=== PATIENT | male | born 1930 | race Caucasian/White ===

== ENCOUNTER 2016-09-08 11:41 | Inpatient (IN) | payer MEDICARE, OTHER ==
[~2016-09-08] VITALS: Ht 182.8 cm; Wt 72.6 kg
[2016-09-08] VITALS (7 sets, daily range): BP systolic 99–154; BP diastolic 65–91
[~2016-09-08 11:41] MED LIST: ALBUTEROL0.09 MG/A2 INH; AMLODIPINE BESY10 MG PO; AMOXICILLIN500 M2 PO; ASPIRIN CHILDRE81 MG PO; ASPIRIN81 M1 PO; AZITHROMYCIN250 MG PO; COLESTID1 GM PO; DAYPRO600 M1 PO; DELTASONE50 MG PO; FISH OIL1000 MG PO; GLIPIZIDE10 MG PO; GLUCOSAMINE & C1 TA2 PO; GLUCOTROL XL5 MG PO; HYDROCODONE BIT1 T11 PO; HYDROXYZINE PAM25 M1 PO; IRON FERROUS S325 MG PO; LANTUS100 U/ML SC; LEVAQUIN750 MG PO; LOPRESSOR50 MG PO; METOPROLOL SUCC50 MG PO; MIRTAZAPINE15 M2 PO; NITROSTAT0.4 MG PO; NOVOLOG FLEX100 U/ML SC; NOVOLOG FLEX100 U/ML SQ; PLAVIX75 MG PO; PRAVACHOL40 MG PO; ROBAXIN750 MG PO; SYNTHROID0.1 MG PO; VITAMIN B1250 MCG PO; VITAMIN D5000 I3 PO
[2016-09-08 12:26] LABS: BASO # 0.1 10*3/uL (0.0-0.1); BASO % 0.9 % (0.0-1.0); EOS # 0.1 10*3/uL (0.0-0.4); EOS % 1.4 % (1.0-4.0); HEMATOCRIT 34.8 % (42.0-52.0); HEMOGLOBIN 12.5 g/dl (14.0-18.0); LYMPH # 1.1 10*3/uL (1.3-4.4); LYMPH % 16.4 % (27.0-41.0); MEAN CELL VOLUME 86.8 fl (80.0-94.0); MEAN CORPUSCULAR HGB 31.2 pg (27.0-31.0); MEAN CORPUSCULAR HGB CONC 35.9 g/dl (33.0-37.0); MEAN PLATELET VOLUME 12.1 fl (9.6-12.3); MONO # 0.4 10*3/uL (0.1-1.0); MONO % 6.5 % (3.0-9.0); NEUT # 4.9 10*3/uL (2.3-7.9); NEUT % 74.5 % (47.0-73.0); PLATELET COUNT AUTOMATED 183 10*3/uL (130-400); RED BLOOD COUNT 4.01 10*6/uL (4.50-5.90); RED CELL DISTRI WIDTH 12.7 % (0-14.5); WHITE BLOOD COUNT 6.6 10*3/uL (4.8-10.8)
[2016-09-08 12:40] LABS: POTASSIUM 5.2 mmol/L (3.5-5.1)
[2016-09-08] MEDS ORDERED: ASMANEX220 MCG INH (12:43)
[2016-09-08] MEDS ORDERED: GLIPIZIDE5 MG PO (12:44)
[2016-09-08] MEDS ORDERED: NOVAPLUS V0.09 MG/Ac INH (12:44)
[2016-09-08 15:16] LABS: POTASSIUM 4.4 mmol/L (3.5-5.1)
[2016-09-08 18:53] LABS: BUN 22 mg/dl (7-24); CARBON DIOXIDE 19 mmol/L (21-32); CHLORIDE 108 mmol/L (98-107); EST GLOM FILT AFRICAN AMERICAN > 60 ml/min; GLUCOSE 180 mg/dL (65-99); POTASSIUM 4.3 mmol/L (3.5-5.1); SODIUM 139 mmol/L (136-145)
[2016-09-08 22:36] LABS: BUN 21 mg/dl (7-24); CARBON DIOXIDE 20 mmol/L (21-32); CHLORIDE 105 mmol/L (98-107); EST GLOM FILT AFRICAN AMERICAN > 60 ml/min; GLUCOSE 224 mg/dL (65-99); POTASSIUM 4.2 mmol/L (3.5-5.1); SODIUM 137 mmol/L (136-145)
[2016-09-09] VITALS: BP 103/65
[2016-09-09 02:06] LABS: BUN 20 mg/dl (7-24); CARBON DIOXIDE 22 mmol/L (21-32); CHLORIDE 106 mmol/L (98-107); EST GLOM FILT AFRICAN AMERICAN > 60 ml/min; GLUCOSE 173 mg/dL (65-99); POTASSIUM 3.7 mmol/L (3.5-5.1); SODIUM 141 mmol/L (136-145)
[2016-09-09 04:00] VITALS: BP 109/67
[2016-09-09 06:00] LABS: BASO # 0.1 10*3/uL (0.0-0.1); BASO % 0.7 % (0.0-1.0); EOS # 0.5 10*3/uL (0.0-0.4); EOS % 6.1 % (1.0-4.0); HEMATOCRIT 35.8 % (42.0-52.0); HEMOGLOBIN 12.6 g/dl (14.0-18.0); LYMPH # 1.8 10*3/uL (1.3-4.4); LYMPH % 23.4 % (27.0-41.0); MEAN CELL VOLUME 88.8 fl (80.0-94.0); MEAN CORPUSCULAR HGB 31.3 pg (27.0-31.0); MEAN CORPUSCULAR HGB CONC 35.2 g/dl (33.0-37.0); MEAN PLATELET VOLUME 12.3 fl (9.6-12.3); MONO # 0.4 10*3/uL (0.1-1.0); MONO % 5.7 % (3.0-9.0); NEUT # 4.8 10*3/uL (2.3-7.9); NEUT % 63.8 % (47.0-73.0); PLATELET COUNT AUTOMATED 200 10*3/uL (130-400); RED BLOOD COUNT 4.03 10*6/uL (4.50-5.90); RED CELL DISTRI WIDTH 12.9 % (0-14.5); WHITE BLOOD COUNT 7.5 10*3/uL (4.8-10.8)
[2016-09-09 06:05] LABS: FREE T4 1.06 ng/dl (0.76-1.46); MAGNESIUM 1.8 mg/dL (1.5-2.1); PHOSPHOROUS 2.1 mg/dL (2.5-4.9)
[2016-09-09 06:13] LABS: THYROID STIM HORMONE (HS) 4.77 uIU/ml (0.358-4.75)
[2016-09-09 07:58] LABS: BUN 19 mg/dl (7-24); CARBON DIOXIDE 23 mmol/L (21-32); CHLORIDE 104 mmol/L (98-107); EST GLOM FILT AFRICAN AMERICAN > 60 ml/min; GLUCOSE 127 mg/dL (65-99); POTASSIUM 3.7 mmol/L (3.5-5.1); SODIUM 137 mmol/L (136-145)
[2016-09-09 08:00] VITALS: BP 110/70
[2016-09-09 08:16] LABS: FOLIC ACID 13.96 ng/mL (>5.38)
[2016-09-09 12:00] VITALS: BP 105/75
== END 2016-09-09 14:43 | disposition home or self-care (01) | DRG 637 ==
LOC: ED 11:41 → EDHOLD 12:52 → ICCU 12:52 → 4E 13:12 → ICCU 13:51
PROVIDERS: Emergency Medicine; Internal Medicine
DX: E13.10 Other specified diabetes mellitus with ketoacidosis without coma (principal); N17.0 Acute kidney failure with tubular necrosis; I13.0 Hypertensive heart and chronic kidney disease with heart failure and stage 1 through stage 4 chronic kidney disease, or unspecified chronic kidney disease; I50.32 Chronic diastolic (congestive) heart failure; F33.3 Major depressive disorder, recurrent, severe with psychotic symptoms; E03.9 Hypothyroidism, unspecified; E78.5 Hyperlipidemia, unspecified; N18.3 Chronic kidney disease, stage 3 (moderate); E55.9 Vitamin D deficiency, unspecified; G47.00 Insomnia, unspecified; E13.22 Other specified diabetes mellitus with diabetic chronic kidney disease; E87.5 Hyperkalemia; D64.9 Anemia, unspecified; E87.8 Other disorders of electrolyte and fluid balance, not elsewhere classified; Z88.8 Allergy status to other drugs, medicaments and biological substances; Z91.041 Radiographic dye allergy status; Z95.5 Presence of coronary angioplasty implant and graft; Z83.3 Family history of diabetes mellitus; Z82.49 Family history of ischemic heart disease and other diseases of the circulatory system; I25.2 Old myocardial infarction; Z86.73 Personal history of transient ischemic attack (TIA), and cerebral infarction without residual deficits; Z82.3 Family history of stroke; Z79.82 Long term (current) use of aspirin; Z79.899 Other long term (current) drug therapy; Z79.4 Long term (current) use of insulin

== ENCOUNTER → 2016-09-21 | Outpatient (CLI) | payer MEDICARE, OTHER ==
[~2016-09-21] MED LIST changes: +ASMANEX220 MCG INH; +GLIPIZIDE5 MG PO; +NOVAPLUS V0.09 MG/Ac INH
[2016-09-21 10:52] LABS: BASO # 0.1 10*3/uL (0.0-0.1); BASO % 1.1 % (0.0-1.0); EOS # 0.3 10*3/uL (0.0-0.4); EOS % 4.8 % (1.0-4.0); HEMATOCRIT 36.6 % (42.0-52.0); HEMOGLOBIN 12.6 g/dl (14.0-18.0); LYMPH # 1.3 10*3/uL (1.3-4.4); LYMPH % 19.2 % (27.0-41.0); MEAN CELL VOLUME 92.4 fl (80.0-94.0); MEAN CORPUSCULAR HGB 31.8 pg (27.0-31.0); MEAN CORPUSCULAR HGB CONC 34.4 g/dl (33.0-37.0); MEAN PLATELET VOLUME 12.2 fl (9.6-12.3); MONO # 0.5 10*3/uL (0.1-1.0); MONO % 7.7 % (3.0-9.0); NEUT # 4.4 10*3/uL (2.3-7.9); PLATELET COUNT AUTOMATED 199 10*3/uL (130-400); RED BLOOD COUNT 3.96 10*6/uL (4.50-5.90); RED CELL DISTRI WIDTH 13.4 % (0-14.5); WHITE BLOOD COUNT 6.6 10*3/uL (4.8-10.8)
[2016-09-21 11:20] LABS: ALBUMIN 3.5 gm/dl (3.1-4.5); BILIRUBIN, TOTAL 0.7 mg/dl (0.2-1.0); POTASSIUM 5.1 mmol/L (3.5-5.1); TOTAL PROTEIN 6.3 gm/dL (6.4-8.2)
== END | disposition home or self-care (01) ==
LOC: LAB 10:29
PROVIDERS: Internal Medicine
DX: I50.33 Acute on chronic diastolic (congestive) heart failure (principal)

== ENCOUNTER → 2016-09-29 | Outpatient (CLI) | payer MEDICARE, OTHER | END | disposition home or self-care (01) | LOC: CARD 09:16 | DX: I50.33 Acute on chronic diastolic (congestive) heart failure (principal) ==

== ENCOUNTER 2016-10-04 11:38 | Inpatient (IN) | payer MEDICARE, OTHER ==
[~2016-10-04] VITALS: Ht 182.9 cm; Wt 73.7 kg
[2016-10-04 11:38] VITALS: BP 110/69
[2016-10-04 12:02] LABS: BASO # 0.1 10*3/uL (0.0-0.1); EOS # 0.4 10*3/uL (0.0-0.4); EOS % 4.8 % (1.0-4.0); HEMATOCRIT 36.6 % (42.0-52.0); HEMOGLOBIN 12.7 g/dl (14.0-18.0); LYMPH # 1.5 10*3/uL (1.3-4.4); MEAN CELL VOLUME 90.6 fl (80.0-94.0); MEAN CORPUSCULAR HGB 31.4 pg (27.0-31.0); MEAN CORPUSCULAR HGB CONC 34.7 g/dl (33.0-37.0); MEAN PLATELET VOLUME 11.3 fl (9.6-12.3); MONO # 0.7 10*3/uL (0.1-1.0); MONO % 8.1 % (3.0-9.0); NEUT # 5.5 10*3/uL (2.3-7.9); NEUT % 67.7 % (47.0-73.0); PLATELET COUNT AUTOMATED 211 10*3/uL (130-400); RED BLOOD COUNT 4.04 10*6/uL (4.50-5.90); RED CELL DISTRI WIDTH 13.2 % (0-14.5); WHITE BLOOD COUNT 8.1 10*3/uL (4.8-10.8)
[2016-10-04 12:11] LABS: PROTHROMBIN TIME 10.3 SECONDS (9.0-12.4)
[2016-10-04 12:20] LABS: ALBUMIN 3.4 gm/dl (3.1-4.5); ALKALINE PHOSPHATASE 63 U/L (45-117); BILIRUBIN, TOTAL 0.5 mg/dl (0.2-1.0); BUN 15 mg/dl (7-24); CARBON DIOXIDE 21 mmol/L (21-32); CHLORIDE 107 mmol/L (98-107); EST GLOM FILT AFRICAN AMERICAN 59 ml/min; GLUCOSE 259 mg/dL (65-99); MAGNESIUM 1.9 mg/dL (1.5-2.1); POTASSIUM 4.7 mmol/L (3.5-5.1); SGOT/AST 11 IU/L (3-35); SGPT/ALT 16 U/L (12-78); SODIUM 134 mmol/L (136-145); TOTAL PROTEIN 6.5 gm/dL (6.4-8.2)
[2016-10-04 12:23] LABS: TROPONIN I < 0.015 ng/ml (<0.045)
[2016-10-04 12:27] VITALS: BP 112/72
[2016-10-04 13:22] VITALS: BP 119/71
[2016-10-04 14:00] VITALS: BP 126/81
[2016-10-04 16:00] VITALS: BP 104/66
[2016-10-04 20:00] VITALS: BP 98/58
[2016-10-05] VITALS: BP 114/66
[2016-10-05 07:20] LABS: BASO # 0.1 10*3/uL (0.0-0.1); BASO % 1.2 % (0.0-1.0); EOS # 0.4 10*3/uL (0.0-0.4); EOS % 5.3 % (1.0-4.0); HEMATOCRIT 35.9 % (42.0-52.0); HEMOGLOBIN 12.5 g/dl (14.0-18.0); LYMPH # 1.5 10*3/uL (1.3-4.4); LYMPH % 21.8 % (27.0-41.0); MEAN CELL VOLUME 91.6 fl (80.0-94.0); MEAN CORPUSCULAR HGB 31.9 pg (27.0-31.0); MEAN CORPUSCULAR HGB CONC 34.8 g/dl (33.0-37.0); MEAN PLATELET VOLUME 11.9 fl (9.6-12.3); MONO # 0.6 10*3/uL (0.1-1.0); MONO % 8.1 % (3.0-9.0); NEUT # 4.4 10*3/uL (2.3-7.9); NEUT % 63.5 % (47.0-73.0); PLATELET COUNT AUTOMATED 217 10*3/uL (130-400); RED BLOOD COUNT 3.92 10*6/uL (4.50-5.90); RED CELL DISTRI WIDTH 13.4 % (0-14.5); WHITE BLOOD COUNT 6.9 10*3/uL (4.8-10.8)
[2016-10-05 07:53] LABS: HEMOGLOBIN A1c 12.2 % (4.8-5.6)
[2016-10-05 07:57] LABS: ALBUMIN 3.3 gm/dl (3.1-4.5); BILIRUBIN, TOTAL 0.5 mg/dl (0.2-1.0); BUN 17 mg/dl (7-24); CARBON DIOXIDE 23 mmol/L (21-32); CHLORIDE 109 mmol/L (98-107); CHOLESTEROL 97 mg/dL (<200); EST GLOM FILT AFRICAN AMERICAN > 60 ml/min; GLUCOSE 98 mg/dL (65-99); POTASSIUM 3.9 mmol/L (3.5-5.1); SGOT/AST 14 IU/L (3-35); SGPT/ALT 15 U/L (12-78); SODIUM 141 mmol/L (136-145); TOTAL PROTEIN 6.2 gm/dL (6.4-8.2); TRIGLYCERIDES 88 mg/dl (<150); VLDL CHOLESTEROL 18 mg/dL (6-40)
[2016-10-05 07:58] LABS: ALKALINE PHOSPHATASE 61 U/L (45-117); HDL CHOLESTEROL 38 mg/dl (40-60); LDL CHOLESTEROL 41 mg/dL (9-159)
[2016-10-05 08:00] VITALS: BP 128/75
[2016-10-05 08:56] LABS: FOLIC ACID 16.54 ng/mL (>5.38); VITAMIN D, 25-HYDROXY 34.2 ng/mL (30-100)
== END 2016-10-05 11:45 | disposition home or self-care (01) | DRG 313 ==
LOC: ED 11:38 → 5E 13:09 → EDHOLD 13:09 → 5E 13:32
PROVIDERS: Hospitalist; Student in an Organized Health Care Education/Training Program
DX: R07.89 Other chest pain (principal); I25.2 Old myocardial infarction; N17.0 Acute kidney failure with tubular necrosis; I13.0 Hypertensive heart and chronic kidney disease with heart failure and stage 1 through stage 4 chronic kidney disease, or unspecified chronic kidney disease; I50.32 Chronic diastolic (congestive) heart failure; I25.10 Atherosclerotic heart disease of native coronary artery without angina pectoris; E11.22 Type 2 diabetes mellitus with diabetic chronic kidney disease; N18.3 Chronic kidney disease, stage 3 (moderate); E78.5 Hyperlipidemia, unspecified; E03.9 Hypothyroidism, unspecified; E55.9 Vitamin D deficiency, unspecified; G47.00 Insomnia, unspecified; Z95.1 Presence of aortocoronary bypass graft; Z88.5 Allergy status to narcotic agent; Z88.8 Allergy status to other drugs, medicaments and biological substances; Z91.041 Radiographic dye allergy status; Z86.73 Personal history of transient ischemic attack (TIA), and cerebral infarction without residual deficits; F32.9 Major depressive disorder, single episode, unspecified; Z95.5 Presence of coronary angioplasty implant and graft; D64.9 Anemia, unspecified

== ENCOUNTER → 2016-11-07 | Outpatient (CLI) | payer MEDICARE, OTHER | END | disposition home or self-care (01) | LOC: CT 08:36 | DX: I25.10 Atherosclerotic heart disease of native coronary artery without angina pectoris (principal); I71.2 Thoracic aortic aneurysm, without rupture; I10 Essential (primary) hypertension; E78.5 Hyperlipidemia, unspecified; R09.89 Other specified symptoms and signs involving the circulatory and respiratory systems; I63.9 Cerebral infarction, unspecified; M47.894 Other spondylosis, thoracic region; E03.4 Atrophy of thyroid (acquired); J43.8 Other emphysema; Z95.1 Presence of aortocoronary bypass graft ==

== ENCOUNTER → 2017-01-10 | Outpatient (CLI) | payer MEDICARE, OTHER ==
[~2017-01-10] MED LIST changes: +COLESTIPOL HYDRO1 GM PO; +VISTARIL50 MG PO
== END | disposition home or self-care (01) ==
LOC: US 01-08 12:30
DX: I65.23 Occlusion and stenosis of bilateral carotid arteries (principal)

== ENCOUNTER 2017-01-11 10:01 | Inpatient (IN) | payer MEDICARE, OTHER ==
[~2017-01-11] VITALS: Ht 182.8 cm; Wt 62.3 kg
[2017-01-11] VITALS (7 sets, daily range): BP systolic 110–140; BP diastolic 74–90
[~2017-01-11 10:01] MED LIST changes: -COLESTIPOL HYDRO1 GM PO; -VISTARIL50 MG PO
[2017-01-11 10:20] LABS: BASO # 0.1 10*3/uL (0.0-0.1); EOS # 0.1 10*3/uL (0.0-0.4); EOS % 1.8 % (1.0-4.0); LYMPH # 1.1 10*3/uL (1.3-4.4); LYMPH % 14.2 % (27.0-41.0); MEAN CELL VOLUME 86.6 fl (80.0-94.0); MEAN CORPUSCULAR HGB 30.3 pg (27.0-31.0); MEAN PLATELET VOLUME 11.5 fl (9.6-12.3); MONO # 0.5 10*3/uL (0.1-1.0); MONO % 6.1 % (3.0-9.0); NEUT # 5.9 10*3/uL (2.3-7.9); NEUT % 76.5 % (47.0-73.0); PLATELET COUNT AUTOMATED 212 10*3/uL (130-400); RED BLOOD COUNT 4.62 10*6/uL (4.50-5.90); RED CELL DISTRI WIDTH 12.1 % (0-14.5); WHITE BLOOD COUNT 7.8 10*3/uL (4.8-10.8)
[2017-01-11 10:28] LABS: ACT PARTIAL THROMBO TIME 23.4 SECONDS (20.8-31.5)
[2017-01-11 10:37] LABS: ALBUMIN 3.8 gm/dl (3.1-4.5); CREATININE 1.6 mg/dL (0.70-1.30); POTASSIUM 5.2 mmol/L (3.5-5.1); TOTAL PROTEIN 6.5 gm/dL (6.4-8.2)
[2017-01-11 10:39] LABS: TROPONIN I 0.023 ng/ml (<0.045)
[2017-01-11 12:02] LABS: BILIRUBIN NEGATIVE (NEGATIVE); BLOOD TRACE-INTACT (NEGATIVE); CLARITY CLEAR (CLEAR); COLOR YELLOW (YELLOW); GLUCOSE 3+ (NEGATIVE); KETONE 1+ (NEGATIVE); LEUKO ESTERASE NEGATIVE (NEGATIVE); NITRITE NEGATIVE (NEGATIVE); PH 6.5 (5.0-9.0); UROBILINOGEN 0.2 E.U./dl (0.2-1.0)
[2017-01-11 12:20] LABS: BACTERIA TRACE; WBC 0-2 wbc/hpf (0-5)
[2017-01-11] MEDS ORDERED: COLESTIPOL HYDRO1 GM PO (13:11)
[2017-01-11] MEDS ORDERED: VISTARIL50 MG PO (13:11)
[2017-01-12] VITALS: BP 92/60
[2017-01-12 06:45] LABS: BASO # 0.1 10*3/uL (0.0-0.1); BASO % 0.9 % (0.0-1.0); EOS # 0.3 10*3/uL (0.0-0.4); EOS % 3.7 % (1.0-4.0); HEMATOCRIT 37.2 % (42.0-52.0); HEMOGLOBIN 13.1 g/dl (14.0-18.0); LYMPH # 2.1 10*3/uL (1.3-4.4); LYMPH % 24.1 % (27.0-41.0); MEAN CELL VOLUME 87.7 fl (80.0-94.0); MEAN CORPUSCULAR HGB 30.9 pg (27.0-31.0); MEAN CORPUSCULAR HGB CONC 35.2 g/dl (33.0-37.0); MEAN PLATELET VOLUME 11.9 fl (9.6-12.3); MONO # 0.5 10*3/uL (0.1-1.0); MONO % 6.1 % (3.0-9.0); NEUT # 5.6 10*3/uL (2.3-7.9); NEUT % 64.8 % (47.0-73.0); PLATELET COUNT AUTOMATED 209 10*3/uL (130-400); RED BLOOD COUNT 4.24 10*6/uL (4.50-5.90); RED CELL DISTRI WIDTH 12.2 % (0-14.5); WHITE BLOOD COUNT 8.6 10*3/uL (4.8-10.8)
[2017-01-12 07:10] LABS: ACT PARTIAL THROMBO TIME 22.4 SECONDS (20.8-31.5)
[2017-01-12 07:11] LABS: ALBUMIN 3.2 gm/dl (3.1-4.5); ALKALINE PHOSPHATASE 63 U/L (45-117); BUN 23 mg/dl (7-24); CHLORIDE 102 mmol/L (98-107); CREATININE 1.04 mg/dL (0.70-1.30); FREE T4 1.14 ng/dl (0.76-1.46); PHOSPHOROUS 3.5 mg/dL (2.5-4.9); SGOT/AST 15 IU/L (3-35); SGPT/ALT 16 U/L (12-78); TOTAL PROTEIN 5.6 gm/dL (6.4-8.2)
[2017-01-12 07:16] LABS: SODIUM 134 mmol/L (136-145)
[2017-01-12 08:00] VITALS: BP 102/68; BP 106/70
[2017-01-12 08:23] LABS: VITAMIN D, 25-HYDROXY 27.7 ng/mL (30-100)
[2017-01-12 12:00] VITALS: BP 100/71
== END 2017-01-12 15:45 | disposition home or self-care (01) | DRG 637 ==
LOC: ED 10:01 → 4E 10:58 → EDHOLD 10:58 → 4E 11:06
PROVIDERS: Emergency Medicine; Internal Medicine; ADMIT Internal Medicine
DX: E11.65 Type 2 diabetes mellitus with hyperglycemia (principal); E11.00 Type 2 diabetes mellitus with hyperosmolarity without nonketotic hyperglycemic-hyperosmolar coma (NKHHC); N17.9 Acute kidney failure, unspecified; E87.1 Hypo-osmolality and hyponatremia; I13.0 Hypertensive heart and chronic kidney disease with heart failure and stage 1 through stage 4 chronic kidney disease, or unspecified chronic kidney disease; I50.32 Chronic diastolic (congestive) heart failure; E87.5 Hyperkalemia; E11.22 Type 2 diabetes mellitus with diabetic chronic kidney disease; E87.8 Other disorders of electrolyte and fluid balance, not elsewhere classified; N18.3 Chronic kidney disease, stage 3 (moderate); D72.810 Lymphocytopenia; I71.2 Thoracic aortic aneurysm, without rupture; G47.00 Insomnia, unspecified; E03.9 Hypothyroidism, unspecified; Z53.29 Procedure and treatment not carried out because of patient's decision for other reasons; I25.10 Atherosclerotic heart disease of native coronary artery without angina pectoris; E78.5 Hyperlipidemia, unspecified; Z79.4 Long term (current) use of insulin; Z91.041 Radiographic dye allergy status; Z88.6 Allergy status to analgesic agent; Z88.8 Allergy status to other drugs, medicaments and biological substances; Z86.73 Personal history of transient ischemic attack (TIA), and cerebral infarction without residual deficits; I25.2 Old myocardial infarction; Z95.5 Presence of coronary angioplasty implant and graft; Z82.49 Family history of ischemic heart disease and other diseases of the circulatory system; Z82.3 Family history of stroke; Z83.3 Family history of diabetes mellitus; Z95.0 Presence of cardiac pacemaker; Z80.0 Family history of malignant neoplasm of digestive organs; Z79.82 Long term (current) use of aspirin; Z79.899 Other long term (current) drug therapy; Z91.14 Patient's other noncompliance with medication regimen

== ENCOUNTER 2017-10-11 11:46 | Inpatient (IN) | payer MEDICARE, OTHER ==
[~2017-10-11] VITALS: Ht 182.9 cm; Wt 63.7 kg
--- NOTE | ~2017-10-11 | EKG ---
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
--- NOTE | ~2017-10-11 | EKG ---
[place], [place] ELECTROCARDIOGRAM REPORT NAME: ANGELA COOK UNIT #: [id number] ROOM: [facility] DOCTOR: GISELLE DRAFT REPORT BIRTHDATE: [birth year] [facility] Test Date: 2017-10-11 Test Time: 16:21:54 Pat Name: ANGELA COOK Department: Room: [facility] 1 Gender: M Jackspooler: : 1930 Requested By: JOHN TELLEZ Order Number: [id number] Reading MD: Luciano Page MD Measurements Intervals [place] Rate: 99 P: VT: QRS: -86 QRSD: 153 T: -1 QT: 439 QTc: 564 Interpretive Statements Sinus rhythm with frequent PACs RBBB and LAFB Baseline wander in lead(s) V4 PACs are now present. Otherwise, no change from earlier ECG this date. Electronically Signed On 10-11-2017 20:43:19 PDT by Luciano Page MD CM:EKGRPT:ELECTROCARDIOGRAM REPORT [id number] [id number] JOHN RAMIREZ DRAFT REPORT JOHN TELLEZ DO
[~2017-10-11 11:46] MED LIST changes: +COLESTIPOL HYDRO1 GM PO; +LANTUS SOL100 UNIT/1 SQ; +VISTARIL50 MG PO
[2017-10-11 12:23] VITALS: BP 167/91; BP 188/94
[2017-10-11 12:23] LABS: BASO # 0.1 10*3/uL (0.0-0.1); BASO % 0.8 % (0.0-1.0); EOS # 0.1 10*3/uL (0.0-0.4); HEMATOCRIT 40.9 % (42.0-52.0); HEMOGLOBIN 13.1 g/dl (14.0-18.0); LYMPH # 0.6 10*3/uL (1.3-4.4); LYMPH % 7.2 % (27.0-41.0); MEAN CELL VOLUME 93.6 fl (80.0-94.0); MEAN PLATELET VOLUME 12.6 fl (9.6-12.3); MONO # 0.5 10*3/uL (0.1-1.0); MONO % 5.5 % (3.0-9.0); NEUT # 7.4 10*3/uL (2.3-7.9); NEUT % 85.4 % (47.0-73.0); PLATELET COUNT AUTOMATED 248 10*3/uL (130-400); RED BLOOD COUNT 4.37 10*6/uL (4.50-5.90); RED CELL DISTRI WIDTH 13.2 % (0-14.5); WHITE BLOOD COUNT 8.7 10*3/uL (4.8-10.8)
[2017-10-11 12:37] VITALS: BP 167/91
[2017-10-11 12:40] LABS: BILIRUBIN NEGATIVE (NEGATIVE); BLOOD TRACE-LYSED (NEGATIVE); CLARITY CLEAR (CLEAR); COLOR YELLOW (YELLOW); GLUCOSE 3+ (NEGATIVE); KETONE NEGATIVE (NEGATIVE); LEUKO ESTERASE NEGATIVE (NEGATIVE); NITRITE NEGATIVE (NEGATIVE); SPECIFIC GRAVITY <= 1.005 (1.005-1.030); UROBILINOGEN 0.2 E.U./dl (0.2-1.0)
[2017-10-11 12:45] LABS: CREATININE 1.85 mg/dL (0.70-1.30); POTASSIUM 5.2 mmol/L (3.5-5.1); TOTAL PROTEIN 7.6 gm/dL (6.4-8.2)
[2017-10-11 12:54] LABS: BACTERIA TRACE; EPITHELIAL CELLS 0-2; WBC 0-2 wbc/hpf (0-5)
[2017-10-11 12:57] LABS: TROPONIN I 0.065 ng/ml (<0.045)
[2017-10-11 13:16] VITALS: BP 139/77
[2017-10-11 15:15] VITALS: BP 152/91
[2017-10-11] MEDS ORDERED: METFORMIN HYDR500 MG PO (15:59)
[2017-10-11] MEDS ORDERED: NEURONTIN100 MG PO (15:59)
[2017-10-11 16:00] VITALS: BP 152/91
[2017-10-11] MEDS ORDERED: HYDROCHLOROTHIA25 M1 PO (16:00)
[2017-10-11] MEDS ORDERED: AMBIEN5 MG PO (16:15)
[2017-10-11] MEDS ORDERED: LASIX20 MG PO (16:15)
[2017-10-11] MEDS ORDERED: VISTARIL50 MG PO (16:16)
[2017-10-11] MEDS ORDERED: REMERON15 M2 PO (16:17)
[2017-10-11 17:05] LABS: CREATININE 1.45 mg/dL (0.70-1.30)
[2017-10-11 17:08] LABS: POTASSIUM 3.9 mmol/L (3.5-5.1)
[2017-10-11 19:11] LABS: CREATININE 1.43 mg/dL (0.70-1.30); POTASSIUM 4.3 mmol/L (3.5-5.1)
[2017-10-11 20:00] VITALS: BP 110/64
[2017-10-11 22:53] LABS: BUN 28 mg/dl (7-24); CHLORIDE 103 mmol/L (98-107); CREATININE 1.11 mg/dL (0.70-1.30); POTASSIUM 3.8 mmol/L (3.5-5.1); SODIUM 137 mmol/L (136-145)
[2017-10-12 01:00] VITALS: BP 109/64
[2017-10-12 04:00] VITALS: BP 128/67
[2017-10-12 05:50] LABS: BASO # 0.1 10*3/uL (0.0-0.1); BASO % 0.9 % (0.0-1.0); EOS # 0.4 10*3/uL (0.0-0.4); EOS % 4.1 % (1.0-4.0); HEMOGLOBIN 11.4 g/dl (14.0-18.0); LYMPH # 1.4 10*3/uL (1.3-4.4); LYMPH % 14.6 % (27.0-41.0); MEAN CORPUSCULAR HGB 29.5 pg (27.0-31.0); MEAN CORPUSCULAR HGB CONC 34.4 g/dl (33.0-37.0); MEAN PLATELET VOLUME 12.6 fl (9.6-12.3); MONO # 0.7 10*3/uL (0.1-1.0); NEUT # 6.8 10*3/uL (2.3-7.9); NEUT % 73.1 % (47.0-73.0); PLATELET COUNT AUTOMATED 229 10*3/uL (130-400); RED BLOOD COUNT 3.86 10*6/uL (4.50-5.90); RED CELL DISTRI WIDTH 12.9 % (0-14.5); WHITE BLOOD COUNT 9.2 10*3/uL (4.8-10.8)
[2017-10-12 05:55] LABS: HEMATOCRIT 33.1 % (42.0-52.0); MEAN CELL VOLUME 85.8 fl (80.0-94.0)
[2017-10-12 06:06] LABS: ALKALINE PHOSPHATASE 83 U/L (45-117); BUN 24 mg/dl (7-24); CHLORIDE 104 mmol/L (98-107); CHOLESTEROL 119 mg/dL (<200); CREATININE 0.95 mg/dL (0.70-1.30); HDL CHOLESTEROL 37 mg/dl (40-60); LDL CHOLESTEROL 62 mg/dL (9-159); PHOSPHOROUS 2.3 mg/dL (2.5-4.9); SGOT/AST 23 IU/L (3-35); SGPT/ALT 19 U/L (12-78); SODIUM 136 mmol/L (136-145); TOTAL PROTEIN 5.7 gm/dL (6.4-8.2); TRIGLYCERIDES 102 mg/dl (<150); VLDL CHOLESTEROL 20 mg/dL (6-40)
[2017-10-12 06:08] LABS: ACT PARTIAL THROMBO TIME 22.7 SECONDS (20.8-31.5)
[2017-10-12 08:00] VITALS: BP 138/72
[2017-10-12 08:04] LABS: VITAMIN D, 25-HYDROXY 26.9 ng/mL (30-100)
[2017-10-12 12:00] VITALS: BP 141/88
[2017-10-12 16:00] VITALS: BP 145/88
[2017-10-12 20:00] VITALS: BP 138/70; BP 152/73
[2017-10-13] VITALS: BP 121/68
[2017-10-13 06:24] LABS: BASO # 0.1 10*3/uL (0.0-0.1); BASO % 0.9 % (0.0-1.0); EOS # 0.2 10*3/uL (0.0-0.4); EOS % 2.4 % (1.0-4.0); LYMPH # 1.5 10*3/uL (1.3-4.4); LYMPH % 15.2 % (27.0-41.0); MEAN CELL VOLUME 86.8 fl (80.0-94.0); MEAN CORPUSCULAR HGB CONC 34.6 g/dl (33.0-37.0); MEAN PLATELET VOLUME 12.4 fl (9.6-12.3); MONO # 0.8 10*3/uL (0.1-1.0); MONO % 7.9 % (3.0-9.0); NEUT # 7.3 10*3/uL (2.3-7.9); NEUT % 73.1 % (47.0-73.0); PLATELET COUNT AUTOMATED 272 10*3/uL (130-400); RED BLOOD COUNT 4.53 10*6/uL (4.50-5.90); RED CELL DISTRI WIDTH 13.2 % (0-14.5)
[2017-10-13 06:28] LABS: HEMATOCRIT 39.3 % (42.0-52.0); HEMOGLOBIN 13.6 g/dl (14.0-18.0)
[2017-10-13 06:51] LABS: ALBUMIN 3.4 gm/dl (3.1-4.5); ALKALINE PHOSPHATASE 89 U/L (45-117); BUN 21 mg/dl (7-24); CHLORIDE 104 mmol/L (98-107); CREATININE 1.05 mg/dL (0.70-1.30); POTASSIUM 3.5 mmol/L (3.5-5.1); SGOT/AST 28 IU/L (3-35); SGPT/ALT 22 U/L (12-78); SODIUM 137 mmol/L (136-145); TOTAL PROTEIN 6.8 gm/dL (6.4-8.2)
[2017-10-13 08:00] VITALS: BP 130/88
[2017-10-13 12:00] VITALS: BP 127/74
[2017-10-13 16:00] VITALS: BP 119/58
[2017-10-13 20:00] VITALS: BP 128/68
[2017-10-14] VITALS: BP 113/65
[2017-10-14 07:04] LABS: BASO # 0.1 10*3/uL (0.0-0.1); EOS # 0.3 10*3/uL (0.0-0.4); EOS % 4.4 % (1.0-4.0); HEMATOCRIT 38.6 % (42.0-52.0); LYMPH # 1.7 10*3/uL (1.3-4.4); LYMPH % 21.3 % (27.0-41.0); MEAN CELL VOLUME 87.7 fl (80.0-94.0); MEAN CORPUSCULAR HGB 29.5 pg (27.0-31.0); MEAN CORPUSCULAR HGB CONC 33.7 g/dl (33.0-37.0); MEAN PLATELET VOLUME 12.4 fl (9.6-12.3); MONO # 0.8 10*3/uL (0.1-1.0); MONO % 9.6 % (3.0-9.0); NEUT # 4.9 10*3/uL (2.3-7.9); NEUT % 63.3 % (47.0-73.0); PLATELET COUNT AUTOMATED 235 10*3/uL (130-400); RED CELL DISTRI WIDTH 13.7 % (0-14.5); WHITE BLOOD COUNT 7.8 10*3/uL (4.8-10.8)
[2017-10-14 07:36] LABS: CHLORIDE 104 mmol/L (98-107); SODIUM 137 mmol/L (136-145)
[2017-10-14 07:46] LABS: BUN 23 mg/dl (7-24); CREATININE 1.07 mg/dL (0.70-1.30)
[2017-10-14 08:00] VITALS: BP 113/70; BP 150/84
[2017-10-14 12:00] VITALS: BP 121/72
[2017-10-14 16:00] VITALS: BP 117/70
[2017-10-14 20:00] VITALS: BP 126/76
[2017-10-15] VITALS: BP 108/64
[2017-10-15 05:53] LABS: BUN 25 mg/dl (7-24); CHLORIDE 105 mmol/L (98-107); CREATININE 1.22 mg/dL (0.70-1.30); SODIUM 138 mmol/L (136-145)
[2017-10-15 06:01] LABS: BASO # 0.1 10*3/uL (0.0-0.1); BASO % 1.2 % (0.0-1.0); EOS # 0.5 10*3/uL (0.0-0.4); EOS % 5.3 % (1.0-4.0); HEMATOCRIT 38.7 % (42.0-52.0); LYMPH # 2.1 10*3/uL (1.3-4.4); LYMPH % 24.8 % (27.0-41.0); MEAN CELL VOLUME 88.6 fl (80.0-94.0); MEAN CORPUSCULAR HGB 29.7 pg (27.0-31.0); MEAN CORPUSCULAR HGB CONC 33.6 g/dl (33.0-37.0); MEAN PLATELET VOLUME 12.2 fl (9.6-12.3); MONO # 0.8 10*3/uL (0.1-1.0); MONO % 9.2 % (3.0-9.0); NEUT % 59.3 % (47.0-73.0); PLATELET COUNT AUTOMATED 239 10*3/uL (130-400); RED BLOOD COUNT 4.37 10*6/uL (4.50-5.90); RED CELL DISTRI WIDTH 13.7 % (0-14.5); WHITE BLOOD COUNT 8.5 10*3/uL (4.8-10.8)
[2017-10-15 08:00] VITALS: BP 102/64; BP 119/92
[2017-10-15] MEDS ORDERED: LOSARTAN POTASS25 M1 PO (10:27)
[2017-10-15] MEDS ORDERED: Lantus SC (10:27)
[2017-10-15 12:00] VITALS: BP 94/58
== END 2017-10-15 12:15 | disposition other institution (70) | DRG 637 ==
LOC: ED 11:46 → ICCU 14:05 → EDHOLD 14:05 → ICCU 14:15 → 5E 10-12 11:40
PROVIDERS: Emergency Medicine; Internal Medicine; Registered Nurse
PROC: 4B02XSZ Measurement of Cardiac Pacemaker, External Approach (ICD-10-PCS; principal; 2017-10-14)
DX: E11.00 Type 2 diabetes mellitus with hyperosmolarity without nonketotic hyperglycemic-hyperosmolar coma (NKHHC) (principal); N17.0 Acute kidney failure with tubular necrosis; I21.A1 Myocardial infarction type 2; E87.1 Hypo-osmolality and hyponatremia; I50.32 Chronic diastolic (congestive) heart failure; I13.0 Hypertensive heart and chronic kidney disease with heart failure and stage 1 through stage 4 chronic kidney disease, or unspecified chronic kidney disease; E11.22 Type 2 diabetes mellitus with diabetic chronic kidney disease; E03.9 Hypothyroidism, unspecified; E55.9 Vitamin D deficiency, unspecified; E78.5 Hyperlipidemia, unspecified; E11.65 Type 2 diabetes mellitus with hyperglycemia; E86.0 Dehydration; E78.00 Pure hypercholesterolemia, unspecified; I25.10 Atherosclerotic heart disease of native coronary artery without angina pectoris; E87.5 Hyperkalemia; G47.00 Insomnia, unspecified; N18.3 Chronic kidney disease, stage 3 (moderate); Z88.8 Allergy status to other drugs, medicaments and biological substances; Z88.6 Allergy status to analgesic agent; Z91.041 Radiographic dye allergy status; Z79.82 Long term (current) use of aspirin; Z79.4 Long term (current) use of insulin; Z79.84 Long term (current) use of oral hypoglycemic drugs; Z86.73 Personal history of transient ischemic attack (TIA), and cerebral infarction without residual deficits; I25.2 Old myocardial infarction; Z95.5 Presence of coronary angioplasty implant and graft; Z95.1 Presence of aortocoronary bypass graft; Z82.49 Family history of ischemic heart disease and other diseases of the circulatory system; Z82.3 Family history of stroke; Z80.0 Family history of malignant neoplasm of digestive organs; Z95.0 Presence of cardiac pacemaker

== ENCOUNTER 2017-10-24 12:09 | Emergency (ER) | payer MEDICARE, OTHER ==
[~2017-10-24 12:09] MED LIST changes: +AMBIEN5 MG PO; +HYDROCHLOROTHIA25 M1 PO; +LASIX20 MG PO; +LOSARTAN POTASS25 M1 PO; +Lantus SC; +METFORMIN HYDR500 MG PO; +NEURONTIN100 MG PO; +REMERON15 M2 PO
[2017-10-24 12:11] VITALS: BP 142/80
[2017-10-24 12:54] LABS: BASO # 0.1 10*3/uL (0.0-0.1); EOS # 0.4 10*3/uL (0.0-0.4); EOS % 4.7 % (1.0-4.0); HEMOGLOBIN 12.9 g/dl (14.0-18.0); LYMPH # 1.2 10*3/uL (1.3-4.4); LYMPH % 15.5 % (27.0-41.0); MEAN CELL VOLUME 90.5 fl (80.0-94.0); MEAN CORPUSCULAR HGB 29.9 pg (27.0-31.0); MEAN CORPUSCULAR HGB CONC 33.1 g/dl (33.0-37.0); MEAN PLATELET VOLUME 11.1 fl (9.6-12.3); MONO # 0.6 10*3/uL (0.1-1.0); MONO % 7.7 % (3.0-9.0); NEUT # 5.6 10*3/uL (2.3-7.9); NEUT % 70.8 % (47.0-73.0); PLATELET COUNT AUTOMATED 272 10*3/uL (130-400); RED BLOOD COUNT 4.31 10*6/uL (4.50-5.90); RED CELL DISTRI WIDTH 13.5 % (0-14.5); WHITE BLOOD COUNT 7.9 10*3/uL (4.8-10.8)
[2017-10-24 13:00] LABS: BUN 26 mg/dl (7-24); CHLORIDE 98 mmol/L (98-107); CREATININE 1.33 mg/dL (0.70-1.30); POTASSIUM 4.8 mmol/L (3.5-5.1); SODIUM 133 mmol/L (136-145)
[2017-10-24 13:19] LABS: BILIRUBIN NEGATIVE (NEGATIVE); BLOOD NEGATIVE (NEGATIVE); CLARITY SL CLOUDY (CLEAR); COLOR YELLOW (YELLOW); GLUCOSE 3+ (NEGATIVE); KETONE NEGATIVE (NEGATIVE); LEUKO ESTERASE NEGATIVE (NEGATIVE); NITRITE NEGATIVE (NEGATIVE); SPECIFIC GRAVITY <= 1.005 (1.005-1.030); UROBILINOGEN 0.2 E.U./dl (0.2-1.0)
[2017-10-24 13:31] LABS: BACTERIA 1+
== END 2017-10-24 15:21 | disposition home or self-care (01) ==
LOC: ED 12:09
PROVIDERS: Emergency Medicine
DX: E11.65 Type 2 diabetes mellitus with hyperglycemia (principal); E11.22 Type 2 diabetes mellitus with diabetic chronic kidney disease; I13.0 Hypertensive heart and chronic kidney disease with heart failure and stage 1 through stage 4 chronic kidney disease, or unspecified chronic kidney disease; N18.3 Chronic kidney disease, stage 3 (moderate); I50.9 Heart failure, unspecified; E78.5 Hyperlipidemia, unspecified; I25.10 Atherosclerotic heart disease of native coronary artery without angina pectoris; I25.2 Old myocardial infarction; E03.9 Hypothyroidism, unspecified; Z86.73 Personal history of transient ischemic attack (TIA), and cerebral infarction without residual deficits; Z91.041 Radiographic dye allergy status; Z88.8 Allergy status to other drugs, medicaments and biological substances; Z88.6 Allergy status to analgesic agent; Z79.899 Other long term (current) drug therapy; Z79.82 Long term (current) use of aspirin

== ENCOUNTER 2018-04-23 09:01 | Inpatient (IN) | payer MEDICARE, OTHER ==
[~2018-04-23] VITALS: Ht 177.8 cm; Wt 59.7 kg
--- NOTE | ~2018-04-23 | EKG ---
[place], [place] ELECTROCARDIOGRAM REPORT NAME: ANGELA COOK UNIT #: [id number] ROOM: 419 DOCTOR: GISELLE DRAFT REPORT BIRTHDATE: [birth year] [facility] Test Date: 2018-04-23 Test Time: 09:28:04 Pat Name: ANGELA COOK Department: Room: 419 Gender: M Shirring Tender: : 1930 Requested By: AGUSTINA PÉREZ Order Number: [id number] Reading MD: Luciano Page MD Measurements Intervals [place] Rate: 81 P: [place]: 212 QRS: 52 QRSD: 161 T: 193 QT: 422 QTc: 490 Interpretive Statements A-V dual-paced complexes w/ some inhibition Occasional PVCs No further analysis attempted due to paced rhythm Compared to ECG 10/11/2017 16:21:54 Sinus rhythm no longer present Left anterior fascicular block no longer present Right bundle-branch block no longer present Paced rhythm now present Electronically Signed On 04-25-2018 7:15:33 PST by Luciano Page MD CM:EKGRPT:ELECTROCARDIOGRAM REPORT [id number] AGUSTINA PÉREZ MD EPIPHANY DRAFT REPORT AGUSTINA PÉREZ MD
--- NOTE | ~2018-04-23 | PR ---
[place], [place] PROGRESS NOTE NAME: ANGELA COOK [facility] #: [id number] UNIT #: [id number] ROOM: 419 DOCTOR: KURT PADILLA MD,KARLOS BIRTHDATE: [birth year] DOS: 05/27/2018 SUBJECTIVE: The patient was noted comfortable at this time without any acute distress, has not been reported symptoms of chest pain, fever or chills. Denies symptoms of hemoptysis. The patient does have mild cough without any sputum expectoration. Denies any abdominal pain, nausea or vomiting. The patient was continued diuretic therapy. Denies any symptoms of headache or diplopia. Denies symptoms of fever or chills. Remaining systems were reviewed with the patient they were noted all negative. OBJECTIVE: VITAL SIGNS: For the patient noted with normal temperature, respiratory rate 17, heart rate 81, blood pressure 130/72. Pulse oxygen saturation was recorded as 96%, saturation on 2 liters nasal cannula. HEENT: Examination shows head was atraumatic. Eyes nonicterus. NECK: Supple. CARDIOVASCULAR: S1, S2 is audible. LUNGS: The patient was noted without any crackles, rhonchi, or wheezing. Breath sounds still noted diminished in lower portion of the lungs bilaterally. ABDOMEN: Soft, nontender. Bowel sounds present. EXTREMITIES: The patient was noted without any edema. VISIBLE SKIN: No lesions or rashes. MUSCULOSKELETAL: Without any acute deformity. CENTRAL NERVOUS SYSTEMS: Cranial nerves 2-12 intact. LABORATORY DATA: The patient's CBC today: WBC count normal, hemoglobin 10.5, platelet count was normal. BMP, the patient's glucose 133, BUN normal, creatinine was normal, sodium 135. IMPRESSION: The patient with acute congestive heart failure, bilateral pleural fluid, related that area of compression, atelectasis. There was no evidence of pneumonia. Mild hypoleukemia, related to the diuretic for this patient and also because of the congestive heart failure. PLAN OF MANAGEMENT: The patient will be continued on the Lasix for the patient monitoring intake and out closely. Follow the pleural fluid periodically with either chest x-ray or ultrasound assessment. At this time, conservative management will be continued. 1. Electrolyte imbalance, the patient will be corrected as necessary. Other supportive therapy, plan of management. The patient's other treatment changes to be made based on progression of the illness. Supportive care and other therapies. Usual medical management. [place], [place] PROGRESS NOTE NAME: ANGELA COOK UNIT #: [id number] ROOM: 419 DOCTOR: KURT PADILLA MD,KARLOS BIRTHDATE: [birth year] KARLOS HICKS MD CM:IGLMA [id number] KARLOS PADILLA MD 05/28/18 1257 ESPERANZA NEWELL.R
[2018-04-23 09:03] VITALS: BP 98/72
[2018-04-23 09:47] LABS: BASO # 0.1 10*3/uL (0.0-0.1); BASO % 0.6 % (0.0-1.0); EOS # 0.2 10*3/uL (0.0-0.4); HEMATOCRIT 40.7 % (42.0-52.0); HEMOGLOBIN 14.8 g/dl (14.0-18.0); LYMPH # 1.3 10*3/uL (1.3-4.4); LYMPH % 14.3 % (27.0-41.0); MEAN CELL VOLUME 86.6 fl (80.0-94.0); MEAN CORPUSCULAR HGB 31.5 pg (27.0-31.0); MEAN CORPUSCULAR HGB CONC 36.4 g/dl (33.0-37.0); MEAN PLATELET VOLUME 11.7 fl (9.6-12.3); MONO # 0.7 10*3/uL (0.1-1.0); MONO % 7.6 % (3.0-9.0); NEUT # 7.1 10*3/uL (2.3-7.9); NEUT % 75.1 % (47.0-73.0); PLATELET COUNT AUTOMATED 255 10*3/uL (130-400); RED CELL DISTRI WIDTH 12.7 % (0-14.5); WHITE BLOOD COUNT 9.4 10*3/uL (4.8-10.8)
[2018-04-23 09:52] VITALS: BP 108/60
[2018-04-23 09:56] LABS: ACT PARTIAL THROMBO TIME 21.8 SECONDS (20.8-31.5)
[2018-04-23 10:02] LABS: ALBUMIN 3.7 gm/dl (3.1-4.5); CREATININE 1.88 mg/dL (0.70-1.30); POTASSIUM 3.5 mmol/L (3.5-5.1)
[2018-04-23 10:03] LABS: TROPONIN I 0.035 ng/ml (<0.045)
[2018-04-23 10:27] LABS: BILIRUBIN NEGATIVE (NEGATIVE); BLOOD NEGATIVE (NEGATIVE); CLARITY CLEAR (CLEAR); COLOR YELLOW (YELLOW); GLUCOSE 3+ (NEGATIVE); KETONE TRACE (NEGATIVE); LEUKO ESTERASE 1+ (NEGATIVE); NITRITE NEGATIVE (NEGATIVE)
[2018-04-23 11:05] LABS: BACTERIA 2+; YEAST 1+
[2018-04-23 11:06] LABS: HYALINE CAST 15-20; MUCOUS 1+
[2018-04-23 11:25] VITALS: BP 90/67
[2018-04-23 12:02] VITALS: BP 99/72
[2018-04-23] MEDS ORDERED: HUMALOG 751 UNIT/0.0 SC (14:05)
[2018-04-23] MEDS ORDERED: HYDROCHLOROTH12.5 M2 PO (14:07)
[2018-04-23] MEDS ORDERED: AMLODIPINE BESY10 MG PO (14:10)
[2018-04-23 16:00] VITALS: BP 94/62
[2018-04-23 20:00] VITALS: BP 84/57
[2018-04-24] VITALS: BP 90/53
[2018-04-24 06:35] LABS: BASO # 0.1 10*3/uL (0.0-0.1); EOS # 0.3 10*3/uL (0.0-0.4); EOS % 3.5 % (1.0-4.0); HEMATOCRIT 35.6 % (42.0-52.0); LYMPH # 1.9 10*3/uL (1.3-4.4); LYMPH % 19.9 % (27.0-41.0); MEAN CELL VOLUME 89.2 fl (80.0-94.0); MEAN CORPUSCULAR HGB 31.1 pg (27.0-31.0); MEAN CORPUSCULAR HGB CONC 34.8 g/dl (33.0-37.0); MEAN PLATELET VOLUME 12.3 fl (9.6-12.3); MONO # 0.8 10*3/uL (0.1-1.0); MONO % 8.4 % (3.0-9.0); NEUT # 6.3 10*3/uL (2.3-7.9); NEUT % 66.9 % (47.0-73.0); PLATELET COUNT AUTOMATED 203 10*3/uL (130-400); RED BLOOD COUNT 3.99 10*6/uL (4.50-5.90); RED CELL DISTRI WIDTH 12.8 % (0-14.5); WHITE BLOOD COUNT 9.4 10*3/uL (4.8-10.8)
[2018-04-24 06:40] LABS: HEMOGLOBIN 12.4 g/dl (14.0-18.0)
[2018-04-24 07:02] LABS: ALBUMIN 3.1 gm/dl (3.1-4.5); ALKALINE PHOSPHATASE 60 U/L (45-117); BUN 29 mg/dl (7-24); CHLORIDE 101 mmol/L (98-107); CHOLESTEROL 104 mg/dL (<200); CREATININE 1.27 mg/dL (0.70-1.30); HDL CHOLESTEROL 32 mg/dl (40-60); LDL CHOLESTEROL 48 mg/dL (9-159); PHOSPHOROUS 3.4 mg/dL (2.5-4.9); POTASSIUM 3.4 mmol/L (3.5-5.1); SGOT/AST 14 IU/L (3-35); SGPT/ALT 14 U/L (12-78); SODIUM 135 mmol/L (136-145); TOTAL PROTEIN 5.9 gm/dL (6.4-8.2); TRIGLYCERIDES 121 mg/dl (<150); VLDL CHOLESTEROL 24 mg/dL (6-40)
[2018-04-24 07:07] LABS: FREE T4 1.34 ng/dl (0.76-1.46); THYROID STIM HORMONE (HS) 0.946 uIU/ml (0.358-4.75)
[2018-04-24 07:37] LABS: VITAMIN D, 25-HYDROXY 24.6 ng/mL (30-100)
[2018-04-24 08:00] VITALS: BP 98/60
[2018-05-26] MEDS ORDERED: PROVENTIL HFA6.7 GM INH (03:37)
[2018-05-26] MEDS ORDERED: LANTUS SOL100 UNIT/1 SC (03:38)
[2018-05-31] MEDS ORDERED: LASIX40 MG PO (10:09)
[2018-05-31] MEDS ORDERED: METOPROLOL SUCC25 M2 PO (10:09)
[2018-05-31] MEDS ORDERED: IMDUR SA30 MG PO (10:09)
== END 2018-04-24 11:56 | disposition home or self-care (01) | DRG 682 ==
LOC: ED 09:01 → EDHOLD 11:50 → 4E 11:50
PROVIDERS: Emergency Medicine; Registered Nurse; ADMIT Internal Medicine
DX: N17.0 Acute kidney failure with tubular necrosis (principal); G93.41 Metabolic encephalopathy; E44.0 Moderate protein-calorie malnutrition; I50.32 Chronic diastolic (congestive) heart failure; I13.0 Hypertensive heart and chronic kidney disease with heart failure and stage 1 through stage 4 chronic kidney disease, or unspecified chronic kidney disease; Z68.1 Body mass index [BMI] 19.9 or less, adult; E78.2 Mixed hyperlipidemia; I25.10 Atherosclerotic heart disease of native coronary artery without angina pectoris; E86.0 Dehydration; E11.22 Type 2 diabetes mellitus with diabetic chronic kidney disease; I95.1 Orthostatic hypotension; N18.3 Chronic kidney disease, stage 3 (moderate); E03.9 Hypothyroidism, unspecified; Z79.4 Long term (current) use of insulin; I25.2 Old myocardial infarction; Z95.5 Presence of coronary angioplasty implant and graft; Z86.73 Personal history of transient ischemic attack (TIA), and cerebral infarction without residual deficits; Z95.1 Presence of aortocoronary bypass graft; Z80.0 Family history of malignant neoplasm of digestive organs; Z83.3 Family history of diabetes mellitus; Z82.3 Family history of stroke; Z88.6 Allergy status to analgesic agent; Z91.041 Radiographic dye allergy status; Z88.8 Allergy status to other drugs, medicaments and biological substances; Z91.048 Other nonmedicinal substance allergy status; Z79.82 Long term (current) use of aspirin; Z79.899 Other long term (current) drug therapy; Z79.02 Long term (current) use of antithrombotics/antiplatelets; Z95.0 Presence of cardiac pacemaker

== ENCOUNTER 2018-07-14 14:15 | Emergency (ER) | payer MEDICARE, OTHER ==
[~2018-07-14] VITALS: Ht 182.8 cm; Wt 78.0 kg
--- NOTE | ~2018-07-14 | EKG ---
[place], [place] ELECTROCARDIOGRAM REPORT NAME: ANGELA COOK UNIT #: [id number] ROOM: DOCTOR: EPIPHANY DRAFT REPORT BIRTHDATE: [birth year] [facility] Test Date: 2018-07-14 Test Time: 15:30:02 Pat Name: ANGELA COOK Department: Room: Gender: Washing Machine Loader: Farzana Wu : 1930 Requested By: BENNY ROSE Order Number: [id number] Reading MD: Nilay Wu MD Measurements Intervals [place] Rate: 70 P: WA: 246 QRS: -43 QRSD: 126 T: 51 QT: 459 QTc: 496 Interpretive Statements A-V dual-paced rhythm with some inhibition No further analysis attempted due to paced rhythm Compared to ECG 05/25/2018 22:24:53 No significant changes Electronically Signed On 07-18-2018 8:07:34 PDT by Nilay Wu MD CM:EKGRPT:ELECTROCARDIOGRAM REPORT [id number] BENNY RAMIREZ DRAFT REPORT BENNY ROSE DO
[~2018-07-14 14:15] MED LIST changes: +HUMALOG 751 UNIT/0.0 SC; +HYDROCHLOROTH12.5 M2 PO; +IMDUR SA30 MG PO; +LANTUS SOL100 UNIT/1 SC; +LASIX40 MG PO; +METOPROLOL SUCC25 M2 PO; +PROVENTIL HFA6.7 GM INH
[2018-07-14 15:20] LABS: BASO # 0.1 10*3/uL (0.0-0.1); BASO % 0.6 % (0.0-1.0); EOS # 0.3 10*3/uL (0.0-0.4); EOS % 3.2 % (1.0-4.0); HEMATOCRIT 35.2 % (42.0-52.0); HEMOGLOBIN 11.7 g/dl (14.0-18.0); LYMPH # 1.1 10*3/uL (1.3-4.4); MEAN CELL VOLUME 90.5 fl (80.0-94.0); MEAN CORPUSCULAR HGB 30.1 pg (27.0-31.0); MEAN CORPUSCULAR HGB CONC 33.2 g/dl (33.0-37.0); MEAN PLATELET VOLUME 11.1 fl (9.6-12.3); MONO % 11.8 % (3.0-9.0); NEUT % 71.2 % (47.0-73.0); PLATELET COUNT AUTOMATED 317 10*3/uL (130-400); RED BLOOD COUNT 3.89 10*6/uL (4.50-5.90); RED CELL DISTRI WIDTH 13.4 % (0-14.5); WHITE BLOOD COUNT 8.5 10*3/uL (4.8-10.8)
[2018-07-14 15:34] LABS: ALBUMIN 3.5 gm/dl (3.1-4.5); CREATININE 1.73 mg/dL (0.70-1.30); POTASSIUM 4.8 mmol/L (3.5-5.1); TOTAL PROTEIN 7.3 gm/dL (6.4-8.2); TROPONIN I 0.04 ng/ml (<0.045)
[2018-07-14 16:10] VITALS: BP 145/76
== END 2018-07-14 16:15 | disposition short-term general hospital (02) ==
LOC: ED 14:15
PROVIDERS: Family Medicine
DX: I63.9 Cerebral infarction, unspecified (principal); I25.10 Atherosclerotic heart disease of native coronary artery without angina pectoris; E78.5 Hyperlipidemia, unspecified; E03.9 Hypothyroidism, unspecified; I13.0 Hypertensive heart and chronic kidney disease with heart failure and stage 1 through stage 4 chronic kidney disease, or unspecified chronic kidney disease; E11.22 Type 2 diabetes mellitus with diabetic chronic kidney disease; N18.3 Chronic kidney disease, stage 3 (moderate); I50.9 Heart failure, unspecified; I25.2 Old myocardial infarction; Z91.041 Radiographic dye allergy status; Z88.6 Allergy status to analgesic agent; Z88.8 Allergy status to other drugs, medicaments and biological substances; Z79.899 Other long term (current) drug therapy; Z86.73 Personal history of transient ischemic attack (TIA), and cerebral infarction without residual deficits; Z79.4 Long term (current) use of insulin; Z86.718 Personal history of other venous thrombosis and embolism; Z95.1 Presence of aortocoronary bypass graft; Z95.0 Presence of cardiac pacemaker

== ENCOUNTER 2019-01-25 11:49 | Emergency (ER) | payer OTHER, MEDICARE ==
[~2019-01-25] VITALS: Ht 182.8 cm; Wt 67.1 kg
[2019-01-25 14:02] VITALS: BP 150/76
== END 2019-01-25 14:00 | disposition home or self-care (01) ==
LOC: ED → EDBD 11:58 → ED 11:58
DX: S09.90XA Unspecified injury of head, initial encounter (principal); I10 Essential (primary) hypertension; E11.9 Type 2 diabetes mellitus without complications; Z79.4 Long term (current) use of insulin; Z79.899 Other long term (current) drug therapy; Z91.041 Radiographic dye allergy status; Z88.8 Allergy status to other drugs, medicaments and biological substances; Z88.6 Allergy status to analgesic agent; Z86.718 Personal history of other venous thrombosis and embolism; Z79.82 Long term (current) use of aspirin; V49.40XA Driver injured in collision with unspecified motor vehicles in traffic accident, initial encounter; Y93.89 Activity, other specified; Y92.413 State road as the place of occurrence of the external cause; Y99.8 Other external cause status

== ENCOUNTER 2019-05-29 10:38 | Emergency (ER) | payer OTHER ==
[2019-05-29 11:34] VITALS: BP 146/70
[2019-05-29 11:47] LABS: BASO # 0.1 10*3/uL (0.0-0.1); BASO % 0.9 % (0.0-1.0); EOS # 0.4 10*3/uL (0.0-0.4); EOS % 4.8 % (1.0-4.0); HEMATOCRIT 34.8 % (42.0-52.0); HEMOGLOBIN 11.6 g/dl (14.0-18.0); LYMPH # 0.9 10*3/uL (1.3-4.4); LYMPH % 9.5 % (27.0-41.0); MEAN CELL VOLUME 89.9 fl (80.0-94.0); MEAN CORPUSCULAR HGB CONC 33.3 g/dl (33.0-37.0); MEAN PLATELET VOLUME 11.1 fl (9.6-12.3); MONO # 0.9 10*3/uL (0.1-1.0); MONO % 9.9 % (3.0-9.0); NEUT # 6.8 10*3/uL (2.3-7.9); NEUT % 74.6 % (47.0-73.0); PLATELET COUNT AUTOMATED 248 10*3/uL (130-400); RED BLOOD COUNT 3.87 10*6/uL (4.50-5.90); RED CELL DISTRI WIDTH 13.2 % (0-14.5); WHITE BLOOD COUNT 9.2 10*3/uL (4.8-10.8)
[2019-05-29 11:51] LABS: ACT PARTIAL THROMBO TIME 28.9 SECONDS (20.0-32.1); INTERNATIONAL NORM RATIO 0.9 (2.0-3.5)
[2019-05-29 11:53] LABS: CREATININE 1.63 mg/dL (0.70-1.30); POTASSIUM 4.6 mmol/L (3.5-5.1)
== END 2019-05-29 13:07 | disposition home or self-care (01) ==
LOC: ED 10:38
PROVIDERS: Emergency Medicine
DX: S00.83XA Contusion of other part of head, initial encounter (principal); H11.32 Conjunctival hemorrhage, left eye; E11.22 Type 2 diabetes mellitus with diabetic chronic kidney disease; I13.0 Hypertensive heart and chronic kidney disease with heart failure and stage 1 through stage 4 chronic kidney disease, or unspecified chronic kidney disease; N18.3 Chronic kidney disease, stage 3 (moderate); I50.32 Chronic diastolic (congestive) heart failure; I25.10 Atherosclerotic heart disease of native coronary artery without angina pectoris; E78.5 Hyperlipidemia, unspecified; I25.2 Old myocardial infarction; E03.9 Hypothyroidism, unspecified; Z95.0 Presence of cardiac pacemaker; Z98.61 Coronary angioplasty status; Z86.73 Personal history of transient ischemic attack (TIA), and cerebral infarction without residual deficits; Z91.041 Radiographic dye allergy status; Z88.8 Allergy status to other drugs, medicaments and biological substances; Z88.6 Allergy status to analgesic agent; Z79.899 Other long term (current) drug therapy; Z79.4 Long term (current) use of insulin; I48.91 Unspecified atrial fibrillation; W20.8XXA Other cause of strike by thrown, projected or falling object, initial encounter; Y93.89 Activity, other specified; Y92.69 Other specified industrial and construction area as the place of occurrence of the external cause; Y99.8 Other external cause status

== ENCOUNTER 2019-07-29 07:53 | Inpatient (IN) | payer MEDICARE ==
[~2019-07-29] VITALS: Ht 175.2 cm; Wt 70.6 kg
[2019-07-29] VITALS (7 sets, daily range): BP systolic 140–165; BP diastolic 64–80
[2019-07-29 08:22] LABS: BASO # 0.1 10*3/uL (0.0-0.1); BASO % 0.6 % (0.0-1.0); EOS # 0.2 10*3/uL (0.0-0.4); EOS % 1.5 % (1.0-4.0); HEMATOCRIT 33.8 % (42.0-52.0); LYMPH % 8.8 % (27.0-41.0); MEAN CELL VOLUME 89.2 fl (80.0-94.0); MEAN CORPUSCULAR HGB CONC 32.5 g/dl (33.0-37.0); MEAN PLATELET VOLUME 10.1 fl (9.6-12.3); MONO % 9.1 % (3.0-9.0); NEUT # 8.7 10*3/uL (2.3-7.9); NEUT % 79.6 % (47.0-73.0); PLATELET COUNT AUTOMATED 392 10*3/uL (130-400); RED BLOOD COUNT 3.79 10*6/uL (4.50-5.90); RED CELL DISTRI WIDTH 12.9 % (0-14.5); WHITE BLOOD COUNT 10.9 10*3/uL (4.8-10.8)
[2019-07-29 08:31] LABS: ACT PARTIAL THROMBO TIME 33.3 SECONDS (20.0-32.1); INTERNATIONAL NORM RATIO 1.1 (2.0-3.5)
[2019-07-29 08:36] LABS: ALBUMIN 2.7 gm/dl (3.1-4.5); ALKALINE PHOSPHATASE 73 U/L (45-117); BUN 15 mg/dl (7-24); CHLORIDE 102 mmol/L (98-107); CREATININE 1.18 mg/dL (0.70-1.30); LIPASE 27 U/L (73-393); POTASSIUM 3.8 mmol/L (3.5-5.1); SGOT/AST 19 IU/L (3-35); SGPT/ALT 14 U/L (12-78); SODIUM 136 mmol/L (136-145); TOTAL PROTEIN 6.9 gm/dL (6.4-8.2); TROPONIN I 0.033 ng/ml (<0.045)
--- NOTE | 2019-07-29 08:52 | NUR ---
PT AWAKE/ALERT/ORIENTED. DEXTROSE EFFECTIVE.
--- NOTE | 2019-07-29 10:00 | NUR ---
PT SITTING UP IN BED EATING BREAKFAST, NO COMPLAINTS NOTED AT THIS TIME.
--- NOTE | 2019-07-29 11:15 | NUR ---
Time: 1114 A 88 year old MALE admitted to under services of PHIL WYNN DO. Pt. arrived via stretcher from ER. Chief complaint: FALL WITH CHANGE IN MENTAL STATUS PER INTERMEDIATE STAFF THIS MORNING. MARLEY WILDER
[2019-07-29] MEDS ORDERED: ALOGLIPTIN6.25 MG PO (11:35)
[2019-07-29] MEDS ORDERED: ELIQUIS2.5 M1 PO (11:36)
[2019-07-29] MEDS ORDERED: ASPIRIN81 M1 PO (11:45)
[2019-07-29] MEDS ORDERED: METOPROLOL SUC100 M1 PO (11:47)
[2019-07-29] MEDS ORDERED: MELATONIN3 MG PO (11:48)
[2019-07-29] MEDS ORDERED: AMARYL1 M1 PO (11:49)
[2019-07-29] MEDS ORDERED: EAR SYSTEM15 ML OT (11:50)
[2019-07-29] MEDS ORDERED: TYLENOL325 M3 PO (11:52)
--- NOTE | 2019-07-29 13:28 | NUR ---
PHYSICAL THERAPY Nursing screen received and chart reviewed. PT evaluation received. Thank you. Cristina Sotelo,PT,DPT
[2019-07-29 15:40] LABS: BILIRUBIN NEGATIVE (NEGATIVE); BLOOD NEGATIVE (NEGATIVE); CLARITY CLEAR (CLEAR); COLOR YELLOW (YELLOW); GLUCOSE NEGATIVE (NEGATIVE); KETONE NEGATIVE (NEGATIVE); LEUKO ESTERASE NEGATIVE (NEGATIVE); NITRITE NEGATIVE (NEGATIVE); PH 7.5 (5.0-9.0); UROBILINOGEN 0.2 E.U./dl (0.2-1.0)
[2019-07-29 15:42] LABS: RBC 0-2 rbc/hpf (0-2); WBC 0-2 wbc/hpf (0-5)
--- NOTE | 2019-07-29 20:00 | NUR ---
UP AND DOWN TO BATHROOM WITH MINIMAL ASSISTANCE. PATIENT ALERT PLEASANT AND NO DISTRESS NOTED.
[2019-07-30] VITALS: BP 146/67
--- NOTE | 2019-07-30 03:00 | NUR ---
24 HR chart check completed.
--- NOTE | 2019-07-30 05:34 | NUR ---
ANGELA COOK [id number] Please refer to the physician's history and physical for past medical history, comorbid conditions, and allergies. Diagnosis: METABOLIC ENCEPHALOPATHY HYPOGLYCEMIA Alcides Score: 18,LOW OR NO RISK WOUND DESCRIPTIONS: Wound Number: 1 Location of the wound: right plantar aspect of foot base great toe Type of wound: unstageable Thickness: Full Size: 2.6cm x 3.0cm x <0.1cm Tunneling: none Undermining: none Sinus Tract: none Presence of Exudate: none Amount: None Color: Brown, pimentel, yellow Odor: None Periwound Skin Appearance: Normal Wound edges: approximated Pain (associated with wound): none at time of assessment How does patient state this happened? pt is unsure how long he had this area Surface the patient is resting on: Proform SKIN PREVENTION RECOMMENDATION: 1. Pressure redistribution support surface as appropriate 2. Elevate heels 3. Remove boots/TEDS every shift and reapply 4. Head of bed 30 degrees as tolerated 5. Assess nutrition and hydration 6. Manage moisture 7. Avoid the use of containment devices while in bed 8. Use absorptive products on surfaces limit layers of linens on bed 9. Turn and reposition every 1-2 hours in bed and every 1 hour in chair as tolerated 10. Weight shifts every 15 minutes while up in chair 11. Offloading with pillows or device to keep heels elevated off bed 12. Monitor skin at least every shift 13. Inspect under medical devices twice a day WOUND TREATMENT RECOMMENDATIONS: Venous and arterail studies for non-healing area to right plantar aspect of foot Consult podiatry for possible debridment of right plantar aspect of foot Unstageable guidelines: Apply sureprep to right plantar aspect of foot at the base of great toe allow time to dry then cover with optifoam gentle every 2 days and prn for soiling Heel raiser pro boots to bilateral feet while in bed. Patient states he will care for this area when he returns home and doesn't wish to follow up in an outpatient setting at this time.
--- NOTE | 2019-07-30 05:40 | NUR ---
0527 BSG 50 REPEATED TEST PER POLICY 0530 BSG [address] NG NOTIFIED OF BSG RESULTS AND ORDER RECEIVED TO GIVEN D50 25GM VIAL AND RECHECK BSG AN HOUR AFTER GIVING.
[2019-07-30 06:18] LABS: BASO # 0.1 10*3/uL (0.0-0.1); BASO % 0.9 % (0.0-1.0); EOS # 0.5 10*3/uL (0.0-0.4); EOS % 6.2 % (1.0-4.0); HEMATOCRIT 31.7 % (42.0-52.0); LYMPH # 1.2 10*3/uL (1.3-4.4); LYMPH % 14.7 % (27.0-41.0); MEAN CELL VOLUME 88.3 fl (80.0-94.0); MEAN CORPUSCULAR HGB 28.7 pg (27.0-31.0); MEAN CORPUSCULAR HGB CONC 32.5 g/dl (33.0-37.0); MEAN PLATELET VOLUME 10.8 fl (9.6-12.3); MONO # 0.9 10*3/uL (0.1-1.0); MONO % 11.4 % (3.0-9.0); NEUT # 5.4 10*3/uL (2.3-7.9); NEUT % 66.6 % (47.0-73.0); PLATELET COUNT AUTOMATED 386 10*3/uL (130-400); RED BLOOD COUNT 3.59 10*6/uL (4.50-5.90); RED CELL DISTRI WIDTH 12.9 % (0-14.5)
[2019-07-30 06:45] LABS: ALBUMIN 2.3 gm/dl (3.1-4.5); BUN 13 mg/dl (7-24); CHLORIDE 103 mmol/L (98-107); CHOLESTEROL 110 mg/dL (<200); CREATININE 1.22 mg/dL (0.70-1.30); SGOT/AST 20 IU/L (3-35); SGPT/ALT 13 U/L (12-78); SODIUM 134 mmol/L (136-145); TOTAL PROTEIN 6.2 gm/dL (6.4-8.2); TRIGLYCERIDES 58 mg/dl (<150); VLDL CHOLESTEROL 12 mg/dL (6-40)
[2019-07-30 06:52] LABS: ALKALINE PHOSPHATASE 63 U/L (45-117); FREE T4 1.08 ng/dl (0.76-1.46); HDL CHOLESTEROL 39 mg/dl (40-60); LDL CHOLESTEROL 59 mg/dL (9-159)
--- NOTE | 2019-07-30 07:02 | NUR ---
NOTIFIED DR. SAM OF BSG 145 AND OF CRITICAL GLUCOSE 47. NO NEW ORDERS.
[2019-07-30 07:57] LABS: VITAMIN D, 25-HYDROXY 13.5 ng/mL (30-100)
[2019-07-30 08:00] VITALS: BP 144/76
--- NOTE | 2019-07-30 09:36 | NUR ---
Dr. Ernst notified of wound care recommendations.
--- NOTE | 2019-07-30 10:21 | NUR ---
[facility] faxed clinical updates to [facility] on this date. Patient is a LTC resident there and can return once medically stable.
--- NOTE | 2019-07-30 10:22 | NUR ---
Occupational Therapy evaluation completed on 4E with full evaluation to follow. Patient complexity is low, [id number]. Recommend occupation Therapy per plan of care and return to prior assisted living upon discharge. Thank you for this referral. Vicki Brumfield OTR/L
--- NOTE | 2019-07-30 10:22 | NUR ---
PHYSICAL THERAPY Physical Therapy evaluation completed on 4E with full evaluation to follow. Low complexity PT evaluation per chart review and evaluation, [id number]. Recommend physical therapy per plan of care and return to assisted living facility upon discharge. Thank you for this referral. Cristina Sotelo,PT,DPT
--- NOTE | 2019-07-30 10:24 | NUR ---
DR. JUÁREZ NOTIFIED OF CONSULT.
--- NOTE | 2019-07-30 11:24 | NUR ---
PT RESIDES AT [facility] AND STATES HE WILL RETURN WHEN MEDICALLY STABLE. WILL CONTINUE TO FOLLOW.
[2019-07-30 11:41] VITALS: BP 142/78
[2019-07-30 16:00] VITALS: BP 112/73
--- NOTE | 2019-07-30 19:00 | NUR ---
ASSUMED CARE FOR THIS PT AT THIS TIME. PT RESTING QUIETLY IN BED. NO C/O VOICED. CALL LIGHT IN REACH.
[2019-07-30 20:00] VITALS: BP 106/69
--- NOTE | 2019-07-30 21:00 | NUR ---
PT'S BS 51. PT DRANK 240CC OJ AND ATE ICE CREAM. WILL CONTINUE TO MONITOR.
--- NOTE | 2019-07-30 23:02 | NUR ---
24 HR chart check completed.
[2019-07-31] VITALS: BP 107/63
--- NOTE | 2019-07-31 00:11 | NUR ---
PT SET OFF BED ALARM. PT ASKING WHEN HE IS BEING MOVED AND PUTTING HEARING AIDES BACK IN. PT REMINDED HE IS NOT LEAVING TONIGHT. PT ACKNOWLEDGES. BED ALARM ON W/CALL LIGHT IN REACH.
--- NOTE | 2019-07-31 02:16 | NUR ---
CHECKED PT'S BS. BS 63. PT REFUSED ANY FOOD. DRANK 120CC OJ AND 120CC WHOLE MILK. WILL MONITOR.
[2019-07-31 08:00] VITALS: BP 148/70
--- NOTE | 2019-07-31 08:05 | NUR ---
PHYSICAL THERAPY Patient seen this am 1;1 for therapy visit and was resting supine in bed upon therapist arrival. Patient identified by name / as Nurse was present attending to patient secondary to low blood glucose level. Nurse gave him juice to drink and stated it was OK to see patient at this time. OT instructional assistant was also present this morning for observation only as patient reported no new c/o's. Patient transfered supine to sit EOB with Supervision, then sit to stand SBA x 1, ambulating SBA to bathroom 15'x 1, no AD. Patient ambulated additional 25'x 1, demonstrating slow marly and needed several v/c's to keep his head up with increased B arm swing. Patient returned to bedside chair with mild fatigue and was very pleasant / talkative, tolerating all treatment without c/o. Patient rmained in chair with call light, tray table, telephone and body alarm for safety. Will continue per POC as tolerated, total treatment time 17 minutes. Dutch Galvan, GEOSCIENCES ASSOCIATE PROFESSOR
--- NOTE | 2019-07-31 08:08 | NUR ---
BSG 62. ORANGE JUICE GIVEN. WILL CONTINUE TO MONITOR. BREAKFAST ORDERED.
--- NOTE | 2019-07-31 08:23 | NUR ---
OT NOTE Pt was seen this A.M. 1:1 for 23 minute OT session. Upon arrival pt was supine in bed. Pt identified by name and and had no complaints at this time. Pt transferred supine to sit EOB with supervision. While sitting EOB pt donned B socks with supervision. Sit to stand completed from bed level with SBA for safety followed by functional mobility into the bathroom with SBA for safety due to bouts of unsteady stance. Pt then stood at commode while completing toileting task with supervision. Pt then stood sink side while washing his hands and face with supervision. Functional mobility was then completed around the room without any UE support and SBA for safety. Pt was left sitting upright in the recliner with call light in hand, tray table in place, and body alarm activated for safety. Continue with POC as able. JESSICA Tian/Hans
[2019-07-31] MEDS ORDERED: GLUCOPHAGE500 MG PO (10:55)
[2019-07-31] MEDS ORDERED: VITAMIN D3125 MC1 PO (10:55)
[2019-07-31] MEDS ORDERED: Humalog SQ (10:55)
--- NOTE | 2019-07-31 11:16 | NUR ---
PT BEING DISCHARGED TO DAY BACK TO [facility].
--- NOTE | 2019-07-31 11:43 | NUR ---
DISCHARGE PHOTO/MEASUREMENTS TAKEN.
[2019-07-31 12:00] VITALS: BP 106/49
--- NOTE | 2019-07-31 12:45 | NUR ---
Patient is now discharged back to [facility] @ 1300 via [facility]. Dc information faxed, [place], nursing/forest fire warden notified as well as family.
--- NOTE | 2019-07-31 13:36 | NUR ---
TRIED TO CALL REPORT TO ELISEO YAN. JAGDEEP SAID SHE WAS DEALING WITH AN EMERGENCY. TOOK THE NUMBER TO 4E AND SAID SHE WOULD CALL BACK.
--- NOTE | 2019-07-31 13:37 | NUR ---
Discharge instructions reviewed with patient/family. Patient receptive and verbalizes understanding. Follow-up care arranged. Written instructions given to patient/family. OG HALE
--- NOTE | 2019-08-01 07:28 | NUR ---
PHYSICAL THERAPY CO-SIGN I approve of the Phyical Therapy notes written above. Margot Everett PT
--- NOTE | 2019-08-01 07:39 | NUR ---
OCCUPATIONAL THERAPY CO-SIGN I approve of the Occupational Therapy notes written above. NOAH KING, OTR/L
== END 2019-07-31 13:35 | DRG 637 ==
LOC: ED 07:53 → 4E 09:37 → EDHOLD 09:37 → 4E 10:06
PROVIDERS: Emergency Medicine; Internal Medicine; ADMIT Internal Medicine
PROC: 0HBMXZZ Excision of Right Foot Skin, External Approach (ICD-10-PCS; principal; 2019-07-30)
DX: E11.649 Type 2 diabetes mellitus with hypoglycemia without coma (principal); G93.41 Metabolic encephalopathy; E43 Unspecified severe protein-calorie malnutrition; I50.32 Chronic diastolic (congestive) heart failure; I13.0 Hypertensive heart and chronic kidney disease with heart failure and stage 1 through stage 4 chronic kidney disease, or unspecified chronic kidney disease; R79.82 Elevated C-reactive protein (CRP); E03.9 Hypothyroidism, unspecified; E55.9 Vitamin D deficiency, unspecified; N18.3 Chronic kidney disease, stage 3 (moderate); G47.00 Insomnia, unspecified; I25.10 Atherosclerotic heart disease of native coronary artery without angina pectoris; I71.2 Thoracic aortic aneurysm, without rupture; I35.0 Nonrheumatic aortic (valve) stenosis; E11.22 Type 2 diabetes mellitus with diabetic chronic kidney disease; L91.9 Hypertrophic disorder of the skin, unspecified; D64.9 Anemia, unspecified; Z66 Do not resuscitate; Z51.5 Encounter for palliative care; Z88.8 Allergy status to other drugs, medicaments and biological substances; Z91.041 Radiographic dye allergy status; Z95.0 Presence of cardiac pacemaker; Z83.3 Family history of diabetes mellitus; Z82.3 Family history of stroke; Z80.0 Family history of malignant neoplasm of digestive organs; Z95.1 Presence of aortocoronary bypass graft; Z68.23 Body mass index [BMI] 23.0-23.9, adult

== ENCOUNTER 2019-08-11 14:22 | Observation (INO) | payer MEDICARE, OTHER ==
[~2019-08-11] VITALS: Wt 65.8 kg
[~2019-08-11 14:22] MED LIST changes: +ALOGLIPTIN6.25 MG PO; +AMARYL1 M1 PO; +EAR SYSTEM15 ML OT; +ELIQUIS2.5 M1 PO; +GLUCOPHAGE500 MG PO; +Humalog SQ; +MELATONIN3 MG PO; +METOPROLOL SUCC50 M1 PO; +TYLENOL325 M3 PO; +VITAMIN D3125 MC1 PO
[2019-08-11 14:26] VITALS: BP 90/60
[2019-08-11 15:14] LABS: BASO # 0.1 10*3/uL (0.0-0.1); BASO % 0.5 % (0.0-1.0); EOS # 0.1 10*3/uL (0.0-0.4); EOS % 0.7 % (1.0-4.0); HEMATOCRIT 35.3 % (42.0-52.0); LYMPH # 0.8 10*3/uL (1.3-4.4); LYMPH % 6.9 % (27.0-41.0); MEAN CELL VOLUME 86.5 fl (80.0-94.0); MEAN CORPUSCULAR HGB 28.9 pg (27.0-31.0); MEAN CORPUSCULAR HGB CONC 33.4 g/dl (33.0-37.0); MEAN PLATELET VOLUME 11.1 fl (9.6-12.3); MONO # 0.8 10*3/uL (0.1-1.0); MONO % 7.2 % (3.0-9.0); NEUT # 9.8 10*3/uL (2.3-7.9); NEUT % 84.2 % (47.0-73.0); PLATELET COUNT AUTOMATED 399 10*3/uL (130-400); RED BLOOD COUNT 4.08 10*6/uL (4.50-5.90); WHITE BLOOD COUNT 11.6 10*3/uL (4.8-10.8)
[2019-08-11 15:23] LABS: ACT PARTIAL THROMBO TIME 32.1 SECONDS (20.0-32.1); INTERNATIONAL NORM RATIO 1.1 (2.0-3.5)
[2019-08-11 15:30] LABS: ALBUMIN 2.9 gm/dl (3.1-4.5); CREATININE 1.99 mg/dL (0.70-1.30); POTASSIUM 4.4 mmol/L (3.5-5.1); TOTAL PROTEIN 7.3 gm/dL (6.4-8.2); TROPONIN I 0.028 ng/ml (<0.045)
[2019-08-11 15:38] VITALS: BP 138/91
--- NOTE | 2019-08-11 17:37 | NUR ---
MSADMTime: N A 88 year old MALE admitted to 4E under services of JOHN FERNANDEZ DO. Pt. arrived via bed from ER. Chief complaint: HYPERGLYCEMIA, DEHYDRATION. JOANNA MARTINEZ
[2019-08-11 17:55] VITALS: BP 120/70
--- NOTE | 2019-08-11 17:57 | NUR ---
CALLED AND NOTIFIED DR. PAGE OF A CRITICAL LACTIC OF 2.2.
[2019-08-11 19:32] LABS: BILIRUBIN 1+ (NEGATIVE); CLARITY SL CLOUDY (CLEAR); COLOR YELLOW (YELLOW); GLUCOSE 3+ (NEGATIVE); KETONE 1+ (NEGATIVE); SPECIFIC GRAVITY 1.015 (1.005-1.030)
[2019-08-11 19:33] LABS: BLOOD NEGATIVE (NEGATIVE); LEUKO ESTERASE NEGATIVE (NEGATIVE); NITRITE NEGATIVE (NEGATIVE); UROBILINOGEN 0.2 E.U./dl (0.2-1.0)
[2019-08-11 19:34] LABS: BACTERIA 1+; HYALINE CAST 16-20; MUCOUS TRACE; RBC 0-2 rbc/hpf (0-2); WBC 0-2 wbc/hpf (0-5)
[2019-08-11 20:00] VITALS: BP 91/52
--- NOTE | 2019-08-11 20:24 | NUR ---
CALLED DR. NG OF LACTIC ACID 2.4 NO NEW ORDERS RECEIVED.
--- NOTE | 2019-08-11 22:47 | NUR ---
CALLED DR. NG AND NOTIFIED HIM OF LACTIC ACID 3.3 INCREASE IV FLUIDS 150CC/HR. FROM 100CC/HR
--- NOTE | 2019-08-11 22:51 | NUR ---
IV FLUIDS INCREASED PER ORDER.
[2019-08-12] VITALS: BP 118/76
--- NOTE | 2019-08-12 00:13 | NUR ---
24 HR chart check completed.
[2019-08-12 06:04] LABS: BASO # 0.1 10*3/uL (0.0-0.1); BASO % 0.6 % (0.0-1.0); EOS # 0.4 10*3/uL (0.0-0.4); EOS % 3.8 % (1.0-4.0); HEMATOCRIT 35.1 % (42.0-52.0); LYMPH # 1.3 10*3/uL (1.3-4.4); LYMPH % 11.7 % (27.0-41.0); MEAN CELL VOLUME 86.5 fl (80.0-94.0); MEAN CORPUSCULAR HGB 28.6 pg (27.0-31.0); MEAN PLATELET VOLUME 11.3 fl (9.6-12.3); MONO % 8.9 % (3.0-9.0); NEUT # 8.2 10*3/uL (2.3-7.9); NEUT % 74.6 % (47.0-73.0); PLATELET COUNT AUTOMATED 393 10*3/uL (130-400); RED BLOOD COUNT 4.06 10*6/uL (4.50-5.90); RED CELL DISTRI WIDTH 13.1 % (0-14.5)
[2019-08-12 06:17] LABS: CREATININE 1.61 mg/dL (0.70-1.30); POTASSIUM 3.7 mmol/L (3.5-5.1)
[2019-08-12 08:00] VITALS: BP 141/75
--- NOTE | 2019-08-12 08:00 | NUR ---
Automobile Service Station Manager in to see patient. He resides at [facility] and plans to return there upon discharge. caustic plant worker notified.
[2019-08-12 12:00] VITALS: BP 108/60
--- NOTE | 2019-08-12 12:10 | NUR ---
Spoke with pt daughter Theodora Valderrama. Updated on treatment and pt condition. States [facility]
--- NOTE | 2019-08-12 13:47 | NUR ---
PRODUCT SAFETY TECHNICAL ASSISTANT spoke with patients daughter about transporting patient back to [facility]. Patients daughter is on her way here now. PRODUCT SAFETY TECHNICAL ASSISTANT contacted Luis Fernando and informed her of this. Patients daughter will meet the patient at the front door.
--- NOTE | 2019-08-12 13:47 | NUR ---
Social service dept states family can be here in 10-15 minutes.
--- NOTE | 2019-08-12 13:52 | NUR ---
Spoke with daughter Theodora Valderrama states she will pull up outside front entrance and call when she arrives.
--- NOTE | 2019-08-12 14:10 | NUR ---
Dc via wheelchair to meet daughter out front entrance for dc to [place].
== END 2019-08-12 14:32 | disposition home or self-care (01) ==
LOC: ED 14:22 → EDHOLD 16:07 → 4E 16:07
PROVIDERS: Emergency Medicine; Internal Medicine; ADMIT Family Medicine
DX: E11.65 Type 2 diabetes mellitus with hyperglycemia (principal); E86.0 Dehydration; N17.0 Acute kidney failure with tubular necrosis; E44.0 Moderate protein-calorie malnutrition; E87.1 Hypo-osmolality and hyponatremia; I12.9 Hypertensive chronic kidney disease with stage 1 through stage 4 chronic kidney disease, or unspecified chronic kidney disease; N18.3 Chronic kidney disease, stage 3 (moderate); E11.22 Type 2 diabetes mellitus with diabetic chronic kidney disease; E03.9 Hypothyroidism, unspecified; D72.829 Elevated white blood cell count, unspecified; E78.5 Hyperlipidemia, unspecified; E87.8 Other disorders of electrolyte and fluid balance, not elsewhere classified

== ENCOUNTER 2019-08-17 22:13 | Observation (INO) | payer MEDICARE, OTHER ==
[~2019-08-17] VITALS: Ht 182.8 cm; Wt 64.5 kg
[2019-08-17 22:19] VITALS: BP 103/73
--- NOTE | 2019-08-17 22:30 | NUR ---
SPOKE WITH PHARMACY REGARDING INSULIN, STATE THEY WILL SEND DOWN TO ED
[2019-08-17 22:52] LABS: BASO # 0.1 10*3/uL (0.0-0.1); BASO % 0.6 % (0.0-1.0); EOS # 0.1 10*3/uL (0.0-0.4); EOS % 1.3 % (1.0-4.0); HEMATOCRIT 36.5 % (42.0-52.0); LYMPH # 0.9 10*3/uL (1.3-4.4); LYMPH % 8.6 % (27.0-41.0); MEAN CELL VOLUME 86.5 fl (80.0-94.0); MEAN CORPUSCULAR HGB 28.4 pg (27.0-31.0); MEAN CORPUSCULAR HGB CONC 32.9 g/dl (33.0-37.0); MEAN PLATELET VOLUME 11.6 fl (9.6-12.3); MONO # 0.9 10*3/uL (0.1-1.0); MONO % 8.4 % (3.0-9.0); NEUT # 8.2 10*3/uL (2.3-7.9); NEUT % 80.6 % (47.0-73.0); PLATELET COUNT AUTOMATED 412 10*3/uL (130-400); RED BLOOD COUNT 4.22 10*6/uL (4.50-5.90); RED CELL DISTRI WIDTH 13.3 % (0-14.5); WHITE BLOOD COUNT 10.2 10*3/uL (4.8-10.8)
--- NOTE | 2019-08-17 23:00 | NUR ---
PT GIVEN URINAL AT BEDSIDE, AWARE URINE NEEDED FOR COLLECTION
[2019-08-17 23:10] LABS: ALBUMIN 2.9 gm/dl (3.1-4.5); CREATININE 1.84 mg/dL (0.70-1.30); POTASSIUM 4.4 mmol/L (3.5-5.1); TOTAL PROTEIN 7.3 gm/dL (6.4-8.2)
[2019-08-17 23:11] LABS: TROPONIN I 0.036 ng/ml (<0.045)
--- NOTE | 2019-08-17 23:26 | NUR ---
PT RESTING ON CART, DENIES UNMET NEEDS. CALL LIGHT IN REACH. WILL CONTINUE TO MONITOR.
--- NOTE | 2019-08-17 23:30 | NUR ---
VERIFIED ORDER FOR POTASSIUM IV WITH DR FLOWERS, PT POTASSIUM 4.4, DR HAYDEN STATES WILL RECHECK POTASSIUM LEVEL BEFORE ADMINISTERING MEDICATION. WILL HOLD AT THIS TIME.
[2019-08-17 23:48] VITALS: BP 108/76
--- NOTE | 2019-08-18 00:08 | NUR ---
ATTEMPT TO HAVE PT USE URINAL, PT STATES HE DOES NOT HAVE TO GO TO BATHROOM RIGHT NOW.
[2019-08-18 00:30] LABS: CREATININE 1.68 mg/dL (0.70-1.30); POTASSIUM 3.7 mmol/L (3.5-5.1)
--- NOTE | 2019-08-18 00:50 | NUR ---
NOTIFIED DR FLOWERS PT REPEAT POTASSIUM 3.7, STATES WILL CHANGE IV POTASSIUM ORDER TO PO TABLET.
[2019-08-18 01:00] VITALS: BP 115/71
[2019-08-18 01:15] VITALS: BP 121/79
--- NOTE | 2019-08-18 01:15 | NUR ---
A 88, admitted to 5E, under the services of PHIL Wynn DO with a diagnosis of HYPERGLYCEMIA. Chief complaint is HYPERGLYCEMIA. Patient arrived via bed from ER. Monitor applied. Initial assessment completed. Vital signs taken and recorded. PHIL WYNN DO notified of admission to the unit. Orders received. See assessment for past medical history, medications and allergies. Patient and/or family oriented to unit. [facility] visitation policy reviewed. Clothing/patient valuable form completed. KATYA ISSA
--- NOTE | 2019-08-18 01:26 | NUR ---
MED REC UPDATED FROM DISCHARGE SUMMARY 08/12/19.
--- NOTE | 2019-08-18 01:30 | NUR ---
DR. PINEDA NOTIFIED OF UP TO DATE MEDICATIONS. ORDERS RECEIVED. ORDERED TO CHECK PT BSG AT 0300 AND GIVE INSULIN ACCORDING TO SS.
[2019-08-18] MEDS ORDERED: ALOGLIPTIN6.25 MG PO (01:39)
--- NOTE | 2019-08-18 01:47 | NUR ---
MED REC UPDATED WITH PAPERWORK FROM ELISEO. METFORMIN & INSULIN SLIDING SCALE NOT ON THIS MED REC. NOTIFIED.
[2019-08-18 04:48] LABS: BASO # 0.1 10*3/uL (0.0-0.1); BASO % 0.9 % (0.0-1.0); EOS # 0.3 10*3/uL (0.0-0.4); EOS % 3.5 % (1.0-4.0); HEMATOCRIT 32.1 % (42.0-52.0); LYMPH # 1.3 10*3/uL (1.3-4.4); LYMPH % 13.4 % (27.0-41.0); MEAN CELL VOLUME 86.1 fl (80.0-94.0); MEAN CORPUSCULAR HGB 28.7 pg (27.0-31.0); MEAN CORPUSCULAR HGB CONC 33.3 g/dl (33.0-37.0); MEAN PLATELET VOLUME 11.1 fl (9.6-12.3); MONO # 0.7 10*3/uL (0.1-1.0); NEUT % 74.8 % (47.0-73.0); PLATELET COUNT AUTOMATED 384 10*3/uL (130-400); RED BLOOD COUNT 3.73 10*6/uL (4.50-5.90); RED CELL DISTRI WIDTH 13.3 % (0-14.5); WHITE BLOOD COUNT 9.4 10*3/uL (4.8-10.8)
[2019-08-18 05:04] LABS: ALBUMIN 2.6 gm/dl (3.1-4.5); CREATININE 1.46 mg/dL (0.70-1.30); POTASSIUM 3.1 mmol/L (3.5-5.1); TOTAL PROTEIN 6.4 gm/dL (6.4-8.2)
[2019-08-18 05:06] LABS: FREE T4 1.43 ng/dl (0.76-1.46)
[2019-08-18 05:10] LABS: THYROID STIM HORMONE (HS) 0.672 uIU/ml (0.358-4.75)
--- NOTE | 2019-08-18 05:15 | NUR ---
DR. PINEDA NOTIFIED OF CRITICAL TROPONIN. ORDERS RECEIVED
[2019-08-18 07:08] LABS: VITAMIN D, 25-HYDROXY 16.9 ng/mL (30-100)
[2019-08-18 08:00] VITALS: BP 112/72
[2019-08-18] MEDS ORDERED: LANTUS SOL100 UNIT/1 SQ (10:10)
--- NOTE | 2019-08-18 10:20 | NUR ---
NOTIFIED DR QUIGLEY OF CRITICAL FINDING CALLED FROM [facility], [facility]. PT HAD BLE VENOUS US SHOWING A LEFT NON OCCLUSIVE DVT IN LEFT COMMON FEMORAL VEIN. PT STARTED XARALTO THIS MORNING. HEPARIN D/C'D PER PHYSICIAN ORDER.
--- NOTE | 2019-08-18 11:30 | NUR ---
PER JOLENE-YUSRA, PATIENT WILL NEED A RAPID COVID TEST BEFORE RETURNING TO [facility].
[2019-08-18 12:00] VITALS: BP 98/62
--- NOTE | 2019-08-18 12:17 | NUR ---
CONCRETE BLOCK LAYER CONTACTED MONICA, SHE IS CHECKING TO SEE IF TRANSPORTATION WILL BE AVAILABLE AT 1:30PM TODAY.
--- NOTE | 2019-08-18 12:45 | NUR ---
ADMINISTERED RAPID COVID-19 TEST PER PROTOCOL.RAPID COVID RESULTS NEGATIVE.
--- NOTE | 2019-08-18 13:08 | NUR ---
ROLL COVERER SPOKE WITH RN. ROLL COVERER ARRANGED FOR [facility] TO PICK THE PATIENT UP AT THE ER DOORS AT 130PM. ROLL COVERER SPOKE WITH PATIENTS MINOR HOLMAN ABOUT DISCHARGE AND TRANSPORTATION.
--- NOTE | 2019-08-18 13:35 | NUR ---
Discharge instructions reviewed with patient/family. Patient receptive and verbalizes understanding. Follow-up care arranged. Written instructions given to patient/family. ALFREDO ESCAMILLA
== END 2019-08-18 13:35 | disposition other institution (70) ==
LOC: ED 22:13 → EDHOLD 08-18 00:57 → 5E 08-18 00:57
PROVIDERS: Emergency Medicine; Internal Medicine; ADMIT Internal Medicine
DX: E11.65 Type 2 diabetes mellitus with hyperglycemia (principal); N17.0 Acute kidney failure with tubular necrosis; E87.1 Hypo-osmolality and hyponatremia; E87.6 Hypokalemia; E83.39 Other disorders of phosphorus metabolism; E43 Unspecified severe protein-calorie malnutrition; E87.8 Other disorders of electrolyte and fluid balance, not elsewhere classified; E03.9 Hypothyroidism, unspecified; E78.5 Hyperlipidemia, unspecified; I12.9 Hypertensive chronic kidney disease with stage 1 through stage 4 chronic kidney disease, or unspecified chronic kidney disease; E11.22 Type 2 diabetes mellitus with diabetic chronic kidney disease; N18.3 Chronic kidney disease, stage 3 (moderate)

== ENCOUNTER 2019-10-16 19:14 | Emergency (ER) | payer MEDICARE, OTHER ==
[~2019-10-16] VITALS: Ht 182.8 cm; Wt 68.9 kg
[2019-10-16 19:43] LABS: BASO # 0.1 10*3/uL (0.0-0.1); BASO % 0.6 % (0.0-1.0); EOS # 0.1 10*3/uL (0.0-0.4); EOS % 1.7 % (1.0-4.0); HEMATOCRIT 31.6 % (42.0-52.0); LYMPH # 0.8 10*3/uL (1.3-4.4); LYMPH % 10.4 % (27.0-41.0); MEAN CELL VOLUME 83.6 fl (80.0-94.0); MEAN CORPUSCULAR HGB 27.2 pg (27.0-31.0); MEAN CORPUSCULAR HGB CONC 32.6 g/dl (33.0-37.0); MEAN PLATELET VOLUME 10.3 fl (9.6-12.3); MONO # 0.7 10*3/uL (0.1-1.0); MONO % 9.1 % (3.0-9.0); NEUT # 6.1 10*3/uL (2.3-7.9); NEUT % 78.1 % (47.0-73.0); PLATELET COUNT AUTOMATED 354 10*3/uL (130-400); RED BLOOD COUNT 3.78 10*6/uL (4.50-5.90); RED CELL DISTRI WIDTH 15.9 % (0-14.5); WHITE BLOOD COUNT 7.8 10*3/uL (4.8-10.8)
[2019-10-16 19:59] LABS: ALBUMIN 2.9 gm/dl (3.1-4.5); ALKALINE PHOSPHATASE 106 U/L (45-117); BUN 31 mg/dl (7-24); CHLORIDE 96 mmol/L (98-107); CREATININE 1.69 mg/dL (0.70-1.30); POTASSIUM 4.3 mmol/L (3.5-5.1); SGOT/AST 28 IU/L (3-35); SGPT/ALT 38 U/L (12-78); SODIUM 127 mmol/L (136-145); TOTAL PROTEIN 7.1 gm/dL (6.4-8.2)
[2019-10-16 20:04] LABS: ACETAMINOPHEN (TYLENOL) < 5.0 ug/ml (10-30); ETHYL ALCOHOL < 3.0 mg/dl (<3)
[2019-10-16 21:59] LABS: COLOR YELLOW (YELLOW); URINE AMPHETAMINES < 1000 (1000ng/ml); URINE BARBITURATES < 200 (200ng/ml); URINE BENZODIAZEPINES < 200 (200ng/ml); URINE CANNABINOIDS (THC) < 50 (50ng/ml); URINE COCAINE < 300 (300ng/ml); URINE METHADONE < 300 (300ng/ml); URINE OPIATES < 300 (300ng/ml)
[2019-10-16 22:00] LABS: BILIRUBIN NEGATIVE (NEGATIVE); BLOOD NEGATIVE (NEGATIVE); CLARITY CLEAR (CLEAR); GLUCOSE NEGATIVE (NEGATIVE); KETONE NEGATIVE (NEGATIVE); LEUKO ESTERASE NEGATIVE (NEGATIVE); NITRITE NEGATIVE (NEGATIVE); PH 6.5 (5.0-9.0); SPECIFIC GRAVITY 1.015 (1.005-1.030); UROBILINOGEN 0.2 E.U./dl (0.2-1.0)
[2019-10-16 22:01] LABS: URINE PHENCYCLIDINE < 25 (25ng/ml)
[2019-10-16 23:22] VITALS: BP 118/70
[2019-10-18] MEDS ORDERED: ROZEREM8 MG PO (15:32)
[2019-10-18] MEDS ORDERED: REMERON15 M2 PO (15:32)
== END 2019-10-17 00:34 | disposition home health service (06) ==
LOC: ED 19:14
PROVIDERS: Nurse Practitioner Family
DX: Z03.818 Encounter for observation for suspected exposure to other biological agents ruled out (principal); R45.851 Suicidal ideations; I25.10 Atherosclerotic heart disease of native coronary artery without angina pectoris; I25.2 Old myocardial infarction; E03.9 Hypothyroidism, unspecified; I13.0 Hypertensive heart and chronic kidney disease with heart failure and stage 1 through stage 4 chronic kidney disease, or unspecified chronic kidney disease; E11.22 Type 2 diabetes mellitus with diabetic chronic kidney disease; N18.3 Chronic kidney disease, stage 3 (moderate); E78.5 Hyperlipidemia, unspecified; Z91.041 Radiographic dye allergy status; Z88.8 Allergy status to other drugs, medicaments and biological substances; Z88.6 Allergy status to analgesic agent; Z79.899 Other long term (current) drug therapy; Z79.82 Long term (current) use of aspirin; Z79.4 Long term (current) use of insulin; Z86.718 Personal history of other venous thrombosis and embolism